=== PATIENT | female | born 1960 | race Caucasian/White ===

== ENCOUNTER 2020-02-26 13:52 | Emergency (ER) | payer OTHER, SELFPAY ==
[2020-02-26 14:00] VITALS: BP 136/91; PULSE 82; RESP 18; TEMP 36.6; O2SAT 99
--- NOTE | 2020-02-26 14:18 | ED.GENADULT ---
HPI - General Adult General Chief complaint: Extremity Injury, Upper Stated complaint: infected finger Time Seen by Provider: 02/26/20 14:17 Source: patient Mode of arrival: ambulatory Limitations: no limitations History of Present Illness HPI narrative: 59-year-old female patient presents to the [facility] with complaints of a concern infection to the right ring finger. Patient states that pain to the finger with swelling and redness started on Sunday. Patient states she did call her primary doctor on Sunday and send him a picture and he sent her and a prescription for clindamycin however she states that she thinks it might be getting worse. Patient states she has had infections to the fingers before. Denies any injury to the finger that she can remember. Denies being a diabetic. Denies any numbness or tingling. Related Data Allergies Allergy/AdvReac Type Severity Reaction Status Date / Time Cephalosporins Allergy Mild HIVES Verified 02/26/20 14:03 cefdinir Allergy Unknown Hives Verified 02/26/20 14:03 ciprofloxacin Allergy Unknown Rash Verified 02/26/20 14:03 codeine Allergy Unknown Hives Verified 02/26/20 14:03 doxycycline Allergy Unknown Hives Verified 02/26/20 14:03 duloxetine Allergy Unknown Hives Verified 02/26/20 14:03 gabapentin Allergy Unknown Hives Verified 02/26/20 14:03 morphine Allergy Unknown Hives Verified 02/26/20 14:03 nortriptyline Allergy Unknown Hives Verified 02/26/20 14:03 Penicillins Allergy Unknown Hives Verified 02/26/20 14:03 DULOXETINE HCL Allergy Unknown THROAT Uncoded 02/07/17 20:15 SWELLING. Review of Systems Review of Systems: Narrative: CONSTITUTIONAL: Denies fever, chills, or sweats. EYES: Denies visual changes, redness, or discharge. ENT: Denies rhinorrhea, congestion, sore throat, or otalgia. CARDIOVASCULAR: Denies chest pain, palpitations, or edema. RESPIRATORY: Denies cough or dyspnea. GASTROINTESTINAL: Denies abdominal pain, nausea, vomiting, or diarrhea. GENITOURINARY: Denies dysuria or hematuria. SKIN: Denies rash or itching. Patient's distal right finger has surrounding erythema to the nailbed with what appears to be some green pus to the medial side of the nail. Slightly warm to the touch no active discharge at this time. MUSCULOSKELETAL: Denies back pain, joint pain, or myalgia. NEUROLOGIC: Denies headache, numbness, or weakness. PSYCHIATRIC: Denies anxiety or depression. 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 Family History Family History Father Hypertension Family history of diabetes mellitus in first degree relative Diabetes mellitus Sibling Hypertension Mother Family history of diabetes mellitus in first degree relative Diabetes mellitus Hypertension Grandparent Family history of lung cancer Other Colon polyp Family history of arthritis Family history of malignant neoplasm of bone Social History Social History Smoking status: Former smoker Second hand tobacco smoke exposure: No Smoking end date: 09/17/03 Alcohol intake: current Comments At the time of my signature I agree with nursing past medical history, surgical, social, and family history. There is no relevant family history pertinent to the presenting complaint. Exam Narrative: Exam Narrative: GENERAL: Well-appearing, well-nourished, and in no acute distress. HEAD: Normocephalic, atraumatic. EYES: PERRLA and EOMI. ENT: Nares clear, no rhinorrhea or epistaxis. Mucous membranes
[2020-02-26 15:56] VITALS: BP 87/57; PULSE 68; RESP 16; TEMP 36.6; O2SAT 97
[2020-02-26 16:28] VITALS: BP 136/93; PULSE 70; RESP 16; TEMP 36.8; O2SAT 100
== END 2020-02-26 16:29 | disposition home or self-care (01) ==
PROVIDERS: Emergency Provider Nurse Practitioner Family; PCP Internal Medicine
DX: L03.011 Cellulitis of right finger (principal); I10 Essential (primary) hypertension; F32.9 Major depressive disorder, single episode, unspecified; K21.9 Gastro-esophageal reflux disease without esophagitis; E78.5 Hyperlipidemia, unspecified; Z87.891 Personal history of nicotine dependence; R03.0 Elevated blood-pressure reading, without diagnosis of hypertension
CPT/HCPCS: 26010; 99283

== ENCOUNTER 2020-09-22 09:31 | Outpatient (CLI) | payer OTHER, SELFPAY ==
--- NOTE | ~2020-09-22 | MM_ITS ---
EXAMINATION: MM screening marco BI w coni HISTORY: Screening mammogram TECHNIQUE: Craniocaudal and mediolateral oblique 3-D tomosynthesis images were obtained and synthetic 2-D images were generated. CAD analysis was submitted and interpreted. COMPARISON: 05/10/2018 bilateral diagnostic digital mammogram 05/10/2018 limited right breast ultrasound 08/03/2017 right ultrasound-guided breast biopsy and post biopsy mammogram 07/06/2017 diagnostic right digital mammogram and limited right breast ultrasound 06/21/2017 bilateral digital screening mammogram BREAST PARENCHYMAL COMPOSITION: There are scattered areas of fibroglandular density. FINDINGS: There are 2 biopsy markers on the right; history of prior benign right breast biopsies. The re is no evidence of suspicious mass, calcification, or architectural distortion to suggest malignanc y in either breast. There has been no suspicious interval change. IMPRESSION: 1. No mammographic evidence of malignancy. 2. Recommend routine screening mammography in one year. BI-RADS Category 1: Negative Reviewed, dictated and finalized at location B. 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
== END 2020-09-22 09:32 | disposition home or self-care (01) ==
LOC: ANHIMG 09:32
PROVIDERS: PCP Internal Medicine; Visit Provider Internal Medicine
DX: Z12.31 Encounter for screening mammogram for malignant neoplasm of breast (principal)
CPT/HCPCS: 77063; 77067

== ENCOUNTER → 2021-01-10 10:29 | Outpatient (CLI) | payer OTHER, SELFPAY ==
--- NOTE | ~2021-01-10 | DEXA_ITS ---
Bone Density Report Name: Rosalinda Ambrose Age: 60 Sex: Female Ethnicity: White Date of : 1960 Indication: postmenopausal; screening for osteoporosis; parental hip fracture; height loss; prior fracture; Referring Provider: CAESAR REYEZ Study: Bone densitometry was performed. Exam Date: January 10, 2021 Accession number: [id number] Bone Density: Region BMD T-score Z-score Classification AP Spine (L1-L4) 1.147 0.9 2.4 Normal Femoral Neck (Left) 0.882 0.3 1.6 Normal Total Hip (Left) 1.046 0.9 1.8 Normal Femoral Neck (Right) 0.932 0.7 2.0 Normal Total Hip (Right) 0.981 0.3 1.3 Normal Total Hip Mean 1.014 0.6 1.6 Normal World Health Organization criteria for BMD impression classify patients as: Normal (T-score at or above -1.0), Osteopenia (T-score between -1.0 and -2.5), or Osteoporosis (T-score at or below -2.5). 10-year Fracture Risk: FRAX not reported because: All T-scores for Spine Total, Hip Total, Femoral Neck at or above -1.0 Previous Exams: Region Exam Age BMD T-score BMD Change BMD Change Date g/cm2 vs Baseline vs Previous AP Spine(L1-L4) 01/10/2021 60 1.147 0.9 0.020 -0.107 12/04/2012 52 1.253 1.9 0.126* 0.126* 09/15/2009 49 1.127 0.7 Total Hip(Left) 01/10/2021 60 1.046 0.9 0.072 -0.004 12/04/2012 52 1.050 0.9 0.076* 0.076* 09/15/2009 49 0.975 0.3 Total Hip(Right) 01/10/2021 60 0.981 0.3 0.022 -0.019 12/04/2012 52 1.000 0.5 0.041* 0.041* 09/15/2009 49 0.960 0.1 *Denotes significance at 95% confidence level, LSC for AP Spine = 0.022 g/cm2, LSC for Total Hip = 0.027 g/cm2 Clinical Information Provided by Patient: Has had a low trauma fracture Parent has had a hip fracture Patient maximum height was 65 Menopause Age: 47 No regular weight bearing exercise Drinks caffeinated beverages Onset of menses at age 10 Number of children 2 Impression: The patient has normal bone mass. The patient has risk factors, including: parental hip fracture, previous fracture. No significant bone loss was observed. Discussion: BONE DENSITY IS ABOVE THE MINIMUM DESIRABLE LEVEL AT ALL SKELETAL SITES TESTED. This patient?s bone mineral density is above the minimum desirable level (T-score -1.0 or better) at all sites measured. The patient should follow a healthful lifestyle (good nutrition
== END ==
PROVIDERS: PCP Internal Medicine; Visit Provider Obstetrics & Gynecology Gynecology
DX: Z78.0 Asymptomatic menopausal state (principal)
CPT/HCPCS: 77080

== ENCOUNTER 2021-04-04 05:33 | Emergency (ER) | payer OTHER, SELFPAY ==
--- NOTE | ~2021-04-04 | XR_ITS ---
EXAMINATION: XR chest 1V portable DATE: 04/04/2021 06:57 INDICATION: Shortness of breath TECHNIQUE: frontal view of the chest was obtained. COMPARISON: Chest radiograph dated 08/21/2019 FINDINGS: Linear discoid atelectasis at the right lower lung zone. No other airspace opacities, pulmonary edema , pleural effusion or pneumothorax. The cardiomediastinal silhouette is normal. Mild thoracic spondyl osis. IMPRESSION: 1. Mild linear discoid atelectasis in the right lower lung zone. Reviewed, dictated and finalized at location A.
[2021-04-04 05:39] VITALS: BP 122/76; PULSE 103; RESP 20; TEMP 36.4; O2SAT 98
--- NOTE | 2021-04-04 05:46 | ECG_ITS ---
Measurements Intervals [place] Rate: 87 P: 21 [place]: 152 QRS: 9 QRSD: 92 T: 31 QT: 394 QTc: 475 Interpretive Statements SINUS RHYTHM INCOMPLETE RIGHT BUNDLE BRANCH BLOCK BORDERLINE T WAVE ABNORMALITY- ANT/INF LEADS BASELINE WANDER- I, II, AVR, AVL, AVF BORDERLINE ECG Electronically Signed On 04-04-2021 6:21:09 CDT by Juan Carlos German D.O.
[2021-04-04 06:07] LABS: Basophils Absolute Auto 0.1 K/mm3 (0.0-0.1); Basophils Percent Auto 0.6 % (0.2-1.2); Eosinophils Absolute Auto 0.2 K/mm3 (0-0.3); Eosinophils Percent Auto 2.2 % (0-4.4); Hematocrit 36.1 % (37.0-47.0); Hemoglobin 12.1 g/dL (12.0-15.0); Immature Granulocyte Absolute 0.03 K/mm3 (0.00-0.031); Immature Granulocyte Percent A 0.4 % (0-0.5); Lymphocytes Absolute Auto 2.06 K/mm3 (0.9-3.2); Lymphocytes Percent Auto 24.9 % (18.3-44.2); Mean Corpuscular HGB Conc 33.5 g/dl (32-36); Mean Corpuscular Hemoglobin 29.6 pg (26-34); Mean Corpuscular Volume 88.3 fl (80-100); Mean Platelet Volume 9.3 fl (7.4-10.4); Monocytes Absolute Auto 0.8 K/mm3 (0.1-0.6); Monocytes Percent Auto 9.3 % (2.6-8.5); Neutrophils Absolute Auto 5.2 K/mm3 (1.3-6.7); Neutrophils Percent Auto 62.6 % (45.5-73.1); Platelet Count Result 318 k/mm3 (150-375); Red Blood Count 4.09 M/mm3 (4.2-5.4); Red Cell Distribution Width 12.6 % (11.5-14.5); White Blood Count 8.3 K/mm3 (4.5-10.0)
--- NOTE | 2021-04-04 06:14 | ED.GENADULT ---
HPI - General Adult General Chief complaint: Upper Respiratory Infection Stated complaint: cough x2 weeks, fatigued Time Seen by Provider: 04/04/21 06:08 History of Present Illness HPI narrative: Patient is a 60-year-old female presents the emergency department with chief complaint of cough. The patient reports that she has been having a cough for the last 2 weeks states she is seen her primary care physician has been tested for COVID-19 and that was negative. The patient reports that she has been vaccinated for COVID-19 the patient is concerned that she may be developing pneumonia patient states that it is worsened with cough and reports that she felt very weak today after she been coughing. Patient states she had a little bit of a low-grade temperature 99 but is not run high fevers with this. The patient denies productive cough. Related Data Allergies Allergy/AdvReac Type Severity Reaction Status Date / Time Cephalosporins Allergy Mild HIVES Verified 04/04/21 06:05 cefdinir Allergy Unknown Hives Verified 04/04/21 06:05 ciprofloxacin Allergy Unknown Rash Verified 04/04/21 06:05 codeine Allergy Unknown Hives Verified 04/04/21 06:05 doxycycline Allergy Unknown Hives Verified 04/04/21 06:05 duloxetine Allergy Unknown Hives Verified 04/04/21 06:05 gabapentin Allergy Unknown Hives Verified 04/04/21 06:05 morphine Allergy Unknown Hives Verified 04/04/21 06:05 nortriptyline Allergy Unknown Hives Verified 04/04/21 06:05 Penicillins Allergy Unknown Hives Verified 04/04/21 06:05 DULOXETINE HCL Allergy Unknown THROAT Uncoded 04/04/21 06:05 SWELLING. Review of Systems Review of Systems: Narrative: A 10 system review of systems was completed on the patient and is negative except for what is stated in the HPI. Nursing and ancillary documentation was reviewed. [facility] Past Medical History Medical History Abnormal finding of blood chemistry Benign essential hypertension BMI 36.0-36.9,adult BMI 37.0-37.9, adult Chronic cough Chronic sinus complaints Depression Dizziness Encounter for colorectal cancer screening Encounter for preventive health examination Encounter for routine adult health examination with abnormal findings Encounter for routine adult health examination without abnormal findings Encounter for screening mammogram for malignant neoplasm of breast Exposure to hepatitis C GERD (gastroesophageal reflux disease) Hyperlipidemia Insomnia 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 Vitamin D deficiency Family History Family History Father Hypertension Family history of diabetes mellitus in first degree relative Diabetes mellitus Sibling Hypertension Mother Family history of diabetes mellitus in first degree relative Diabetes mellitus Hypertension Grandparent Family history of lung cancer Other Colon polyp Family history of arthritis Family history of malignant neoplasm of bone Social History Social History Smoking status: Former smoker Second hand tobacco smoke exposure: No Smoking end date: 09/17/03 Alcohol intake: current Exam Narrative: Exam Narrative: GENERAL: Well-appearing, well-nourished, and in no acute distress. HEAD: Normocephalic, atraumatic. EYES: PERRLA and EOMI. ENT: Nares clear, no rhinorrhea or epistaxis. Mucous membranes moist. NECK: Supple. CHEST: Clear to auscultation. No respiratory distress. HEART: Regular rate and rhythm. No murmur heard. Normal peripheral pulses. ABDOMEN: Soft, nontender, nondistended, normal active bowel sounds. EXTREMITIES: Normal range of motion. No edema. SKIN: Warm, dry, no rash. NEURO: No focal deficits. Alert and oriented x3. PSYCH: Normal mood and affect. Course Vital Signs Vital signs: Vital Signs Temperature 36.4 C L 04/04/21 05:39 Pulse Rate 103 H 04/04/21 05:3
[2021-04-04 06:15] LABS: Anion Gap 9 mmol/L (8-16); Blood Urea Nitrogen 16 mg/dL (7-17); Carbon Dioxide 21 mmol/L (22-30); Chloride 106 mmol/L (98-107); Estimated CRCL calculation 54 ml/min; Estimated Glomerular Filt Rate 51; Glucose 110 mg/dL (65-110); Potassium 3.7 mmol/L (3.4-5.0); Sodium 136 mmol/L (137-145)
[2021-04-04 06:47] VITALS: BP 114/76; PULSE 82; RESP 18; O2SAT 95
[2021-04-04 07:17] VITALS: BP 108/73; PULSE 98; RESP 18; O2SAT 97
== END 2021-04-04 07:19 | disposition home or self-care (01) ==
PROVIDERS: Emergency Provider Emergency Medicine; PCP Internal Medicine
DX: J20.9 Acute bronchitis, unspecified (principal); E78.5 Hyperlipidemia, unspecified; I10 Essential (primary) hypertension; F32.9 Major depressive disorder, single episode, unspecified; Z87.891 Personal history of nicotine dependence
CPT/HCPCS: 36415; 71045; 80048; 85025; 93005; 99284

== ENCOUNTER 2021-04-12 11:49 | Outpatient (CLI) | payer OTHER, SELFPAY ==
--- NOTE | ~2021-04-12 | XR_ITS ---
EXAMINATION: XR chest 2V 04/12/2021 12:01 INDICATION: Acute upper respiratory infection PROCEDURE: 2 view chest COMPARISON: 04/04/2021 FINDINGS: The lungs are clear. The cardiomediastinal silhouette is within normal limits. There are no pleural effusions. There is no pneumothorax suspected. IMPRESSION: 1: NO ACUTE CARDIOPULMONARY DISEASE. Reviewed, dictated and finalized at location A.
== END 2021-04-12 11:50 | disposition home or self-care (01) ==
LOC: ANHIMG 11:50
PROVIDERS: PCP Internal Medicine; Visit Provider Internal Medicine
DX: J06.9 Acute upper respiratory infection, unspecified (principal); R05 Cough; R06.02 Shortness of breath
CPT/HCPCS: 71046

== ENCOUNTER 2021-07-19 11:15 | Emergency (ER) | payer OTHER, SELFPAY ==
--- NOTE | ~2021-07-19 | XR_ITS ---
EXAMINATION: XR hip LT 2V w AP pelvis, XR sacrum coccyx min 2V DATE: 07/19/2021 12:18 INDICATION: Proximal left hip pain post fall onto concrete TECHNIQUE: 1. Anteroposterior view of the pelvis and anteroposterior and frog-leg lateral views of the left hip were obtained. 2. AP, angled AP and lateral views of the sacrum and coccyx were obtained. COMPARISON: None. FINDINGS: Alignment is normal. Sacral arches appear intact. No fracture. Mild right and minimal left hip osteoa rthritis. Bilateral sacral iliac joints bases appear relatively preserved. Moderate bilateral lower l umbar facet osteoarthritis. Several phleboliths in the pelvis. IMPRESSION: 1. No acute osseous abnormality. Reviewed, dictated and finalized at location A. IMPRESSION: 1. No acute osseous abnormality.
[2021-07-19 11:33] VITALS: BP 144/81; PULSE 87; RESP 20; TEMP 36.7; O2SAT 100
[2021-07-19] MEDS: diazePAM (*CRX) 5 MG TABLET PO (11:57)
--- NOTE | 2021-07-19 12:04 | ED.BACK ---
HPI - Back Pain/Injury General Chief Complaint: Back Pain/Injury Stated Complaint: BACK PAIN X2D Time Seen by Provider: 07/19/21 11:37 Source: patient and RN notes reviewed Mode of arrival: ambulatory Limitations: no limitations History of Present Illness HPI Narrative: This is a 60 year old female who presents for evaluation of left posterior hip pain s/p fall. Patient states she accidentally slipped and fell onto her buttock 2 days ago. She hit her left knee at that time, but denies denies hitting head or LOC. She was able to get up and she had very little pain. She denies knee pain. Later that night she developed pain to her left buttock. Her pain has worsened today. Her pain is worse with sitting and standing straight. She is able to laying her back. She takes ibuprofen 600 mg twice a day regularly for chronic neck pain but she has increased to 3 times a day for this pain. She denies limb weakness, numbness or tingling. She last took ibuprofen at 1000 am. Related Data Allergies Allergy/AdvReac Type Severity Reaction Status Date / Time Cephalosporins Allergy Mild HIVES Verified 07/19/21 11:39 cefdinir Allergy Unknown Hives Verified 07/19/21 11:39 ciprofloxacin Allergy Unknown Rash Verified 07/19/21 11:39 codeine Allergy Unknown Hives Verified 07/19/21 11:39 doxycycline Allergy Unknown Hives Verified 07/19/21 11:39 duloxetine Allergy Unknown Hives, Verified 07/19/21 11:53 Throat Swelling gabapentin Allergy Unknown Hives Verified 07/19/21 11:39 morphine Allergy Unknown Hives Verified 07/19/21 11:39 nortriptyline Allergy Unknown Hives Verified 07/19/21 11:39 Penicillins Allergy Unknown Hives Verified 07/19/21 11:39 Review of Systems Review of Systems: All systems reviewed & are unremarkable except as noted in HPI and below PMFSH Past Medical History Medical History Abnormal finding of blood chemistry Benign essential hypertension BMI 36.0-36.9,adult BMI 37.0-37.9, adult Chronic cough Chronic sinus complaints Depression Dizziness Encounter for colorectal cancer screening Encounter for preventive health examination Encounter for routine adult health examination with abnormal findings Encounter for routine adult health examination without abnormal findings Encounter for screening mammogram for malignant neoplasm of breast Exposure to hepatitis C Follow up GERD (gastroesophageal reflux disease) Hyperlipidemia Insomnia 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 URI (upper respiratory infection) Vitamin D deficiency Family History Family History Father Hypertension Family history of diabetes mellitus in first degree relative Diabetes mellitus Sibling Hypertension Mother Family history of diabetes mellitus in first degree relative Diabetes mellitus Hypertension Grandparent Family history of lung cancer Other Colon polyp Family history of arthritis Family history of malignant neoplasm of bone Social History Social History Smoking status: Former smoker Second hand tobacco smoke exposure: No Smoking end date: 09/17/03 Alcohol intake: current Exam Const: General: no acute distress and alert Nutritional Appearance: obese Orientation/consciousness: patient oriented x3 Eyes: EOM: EOMs intact bilaterally Resp: Effort & Inspection: normal respiratory effort and no retractions Auscultation: clear to auscultation bilaterally Cardio: Rate: regular rate Rhythm: regular rhythm Heart sounds: no murmurs GI: GI Palp: Yes Soft to palpation, No Tenderness to palpation present (GI) and No Guarding due to palpation present (GI) Auscultation: normal bowel sounds : General: Yes no CVA tenderness Back/Spine/Pelvis: Cervical Spine: cervical ROM normal Thoracic/Lumbar Spine: thoracic and lumbar spine normal to inspection, No para
== END 2021-07-19 13:40 | disposition home or self-care (01) ==
PROVIDERS: Emergency Provider General Practice; PCP Internal Medicine
DX: M54.42 Lumbago with sciatica, left side (principal); I10 Essential (primary) hypertension; K21.9 Gastro-esophageal reflux disease without esophagitis; E78.5 Hyperlipidemia, unspecified
CPT/HCPCS: 72220; 73502; 99284; A9270

== ENCOUNTER 2021-07-23 19:58 | Inpatient (IN) | payer OTHER, SELFPAY ==
--- NOTE | ~2021-07-23 | XR_ITS ---
XR knee LT 3V DATE: 07/23/2021 20:16 INDICATION: Fall. Generalized knee pain, anterior bruising TECHNIQUE: 3 views including crosstable lateral COMPARISON: None FINDINGS: No fracture or dislocation or joint effusion. No radiopaque intra-articular loose body or c hondrocalcinosis. Joint spaces are relatively preserved. There is minimal osteoarthritis. IMPRESSION: No fracture or dislocation or joint effusion Minimal osteoarthritis Reviewed, dictated and finalized at location A.
--- NOTE | ~2021-07-23 | XR_ITS ---
EXAMINATION: XR surgery orthopedic EXAM DATE: 07/25/2021 13:50 INDICATION: ORIF. Left ankle fracture. TECHNIQUE: Fluoroscopy used during left ankle ORIF performed by Dr. Isaac Carrillo MD. Radiologis t was not present for the imaging or procedure. Total fluoroscopic time of 20 seconds. The DAP for this procedure was 0.02 mGym2. A total of 4 images sent to PACS from the exam. FINDINGS: Left ankle portable fluoroscopic images demonstrate a reduced left fibular fracture with l ateral plate and supporting screws. There is also an anchor along the medial tibial plafond, consiste nt with repair of distal tibiofibular syndesmosis. Some soft tissue swelling. Correlate with procedu re note. Suspicion of small posterior malleolar fracture on the lateral projection. IMPRESSION: Fluoroscopy used during left ankle open reduction internal fixation. Reviewed, dictated and finalized at location A. ARD PRUNER IMPRESSION: Fluoroscopy used during left ankle open reduction internal fixation .
--- NOTE | ~2021-07-23 | XR_ITS ---
XR lumbar spine 2-3V DATE: 07/24/2021 13:24 INDICATION: Low back pain. Can't lie on left side. TECHNIQUE: AP, lateral, coned lateral lumbosacral views COMPARISON: None FINDINGS: Lumbar vertebrae are normally aligned. No fracture or bone destruction is evident. The lumb ar pedicles are intact. Lumbar and lumbosacral interspaces are relatively well preserved. There is mi nimal degenerative spurring of the lumbar vertebrae. The sacroiliac joints are intact. IMPRESSION: Mild degenerative change Reviewed, dictated and finalized at location A. OUT MANAGER IMPRESSION: Mild degenerative change
--- NOTE | ~2021-07-23 | CT_ITS ---
EXAMINATION: CT ankle LT wo con DATE: 07/24/2021 09:10 INDICATION: Left ankle fracture TECHNIQUE: High resolution computed tomography (CT) of the left ankle was performed without intraveno us contrast. Additional sagittal and coronal reconstructions were performed. Automated exposure contr ol and iterative reconstruction technique were employed. The dose-length product was 540.29 mGy-cm. COMPARISON: None FINDINGS: Oblique fracture of the distal left fibular diaphysis with 4 mm posterior displacement, 4 degrees pos terior and medial angulation and 3 mm proximal migration. Coronally oriented fracture extending acros s the posterior malleolus and into the posterior aspect of the medial malleolus. There is mild commin ution along the articular surface at the posterior aspect of the tibial plafond with minimal depressi on of a couple bone fragment involving the articular surface and mild posterior displacement along th e posterior margin of the talar dome of 5 x 4 mm fragment involving the posterior rim of the tibial p katelyn. There is approximately 3 to 4 mm proximal depression of the largest fragment involving the la teral two thirds of the posterior malleolus. The fractures involve less than 10% of the articular jas face area of the tibial plafond. No other fractures identified. Negligible widening of the anterior t ibiotalar joint space. Remaining joint spaces are preserved. Prominent soft tissue swelling with subc utaneous edema about the lateral aspect of the ankle and distal lower leg. Fiberglas splinting about the ankle. IMPRESSION: 1. Mildly displaced and angulated oblique fracture of the distal left fibular diaphysis. 2. Comminuted intra-articular fracture of the distal tibia involving the posterior malleolus and post erior aspect of medial malleolus with minimal to mild depression of a small portion of the posterior articular surface of the tibial plafond and with detailed above. Reviewed, dictated and finalized at location A. UNITY NURSE IMPRESSION: 1. Mildly displaced and angulated oblique fracture of the distal left fibular d iaphysis. 2. Comminuted intra-articular fracture of the distal tibia involving the zigzag appliquer ior malleolus and posterior aspect of medial malleolus with minimal to mild dep ression of a small portion of the posterior articular surface of the tibial brandi fond and with detailed above.
--- NOTE | ~2021-07-23 | XR_ITS ---
EXAMINATION: XR ankle LT min 3V DATE: 07/23/2021 23:04 INDICATION: Left ankle fracture reduction. TECHNIQUE: Anteroposterior, oblique, mortise, and lateral views of the left ankle were obtained. COMPARISON: 07/23/2021 at 8:08 PM FINDINGS: Interval reduction and fiberglass splinting of a previous noted left distal fibular and posterior mal leolar fractures with improvement in alignment. There is some degree residual posterior medial angula tion of the fibular fracture. Minimal residual displacement of the posterior malleolar fracture which extends into the medial malleolus. Slight residual widening of the anterior aspect of the tibiotalar joint. No other fractures identified. Diffuse soft tissue swelling about the ankle. IMPRESSION: 1. Improvement to near anatomic alignment and splinting of the left tibial and fibular fractures. Reviewed, dictated and finalized at location A. LATORY PAINTER
--- NOTE | ~2021-07-23 | XR_ITS ---
XR hip LT 2V w AP pelvis DATE: 07/23/2021 21:05 INDICATION: Fall today. Left hip pain. TECHNIQUE: AP pelvis. AP and lateral views of left hip. COMPARISON: None FINDINGS: No pelvic fracture or bone destruction. The pubic symphysis and sacroiliac joints are intac t. No fracture or dislocation, avascular necrosis or bone destruction of the left hip. There is mild lef t hip osteoarthritis. IMPRESSION: No pelvic or left hip fracture Mild left hip osteoarthritis Reviewed, dictated and finalized at location A.
--- NOTE | ~2021-07-23 | XR_ITS ---
XR ankle LT min 3V DATE: 07/23/2021 20:16 INDICATION: Fall. Ankle deformity. TECHNIQUE: 3 views COMPARISON: None FINDINGS: There is a spiral fracture of the distal fibular shaft with approximately 1 cortical width lateral displacement and mild apex anterolateral angulation. Intra-articular posterior malleolar fractures of the distal tibia. There is posterior subluxation and widening of the tibiotalar joint. IMPRESSION: Fracture of distal fibular shaft Intra-articular posterior malleolar fracture Mild posterior subluxation at the tibiotalar joint Reviewed, dictated and finalized at location A.
[2021-07-23 19:59] VITALS: BP 135/98; PULSE 96; RESP 16; TEMP 36.3; O2SAT 98
--- NOTE | 2021-07-23 20:34 | ED.GENADULT ---
HPI - General Adult General Chief complaint: Extremity Injury, Lower Stated complaint: Unspecified Time Seen by Provider: 07/23/21 20:24 Source: RN notes reviewed History of Present Illness HPI narrative: Patient presents to emergency department from home via EMS for left ankle pain. Patient states she has been having a severe flare of her sciatica and has been minimally able to get up and get around over the past 5 days states she has been taking tramadol for pain with her last tramadol at 3:30 PM. Patient states that she is attempting to pull herself up today to get up when she twisted her left ankle a pop in her left ankle is been able to bear weight since that time. She denies falling to the ground or striking her head she denies any other injuries patient denies any numbness or tingling in the extremities Related Data Allergies Allergy/AdvReac Type Severity Reaction Status Date / Time Cephalosporins Allergy Mild HIVES Verified 07/23/21 20:04 cefdinir Allergy Unknown Hives Verified 07/23/21 20:04 ciprofloxacin Allergy Unknown Rash Verified 07/23/21 20:04 codeine Allergy Unknown Hives Verified 07/23/21 20:04 doxycycline Allergy Unknown Hives Verified 07/23/21 20:04 duloxetine Allergy Unknown Hives, Verified 07/23/21 20:04 Throat Swelling gabapentin Allergy Unknown Hives Verified 07/23/21 20:04 morphine Allergy Unknown Hives Verified 07/23/21 20:04 nortriptyline Allergy Unknown Hives Verified 07/23/21 20:04 Penicillins Allergy Unknown Hives Verified 07/23/21 20:04 Review of Systems Review of Systems: Gen.: Denies fevers or chills ENT: Denies congestion Respiratory: Denies shortness of breath or cough CV: Denies chest pain or palpitations GI: Denies abdominal pain nausea, emesis or diarrhea Musculoskeletal: See HPI Neuro: Denies numbness, tingling, weakness or focal weakness Skin: Denies rash Except as documented, all other systems reviewed and negative PMFSH Past Medical History Medical History Abnormal finding of blood chemistry Back pain Benign essential hypertension BMI 36.0-36.9,adult BMI 37.0-37.9, adult Chronic cough Chronic sinus complaints Depression Dizziness Encounter for colorectal cancer screening Encounter for preventive health examination Encounter for routine adult health examination with abnormal findings Encounter for routine adult health examination without abnormal findings Encounter for screening mammogram for malignant neoplasm of breast Exposure to hepatitis C Follow up GERD (gastroesophageal reflux disease) Hyperlipidemia Insomnia 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 URI (upper respiratory infection) Vitamin D deficiency Family History Family History Father Hypertension Family history of diabetes mellitus in first degree relative Diabetes mellitus Sibling Hypertension Mother Family history of diabetes mellitus in first degree relative Diabetes mellitus Hypertension Grandparent Family history of lung cancer Other Colon polyp Family history of arthritis Family history of malignant neoplasm of bone Social History Social History Smoking status: Former smoker Second hand tobacco smoke exposure: No Smoking end date: 09/17/03 Alcohol intake: current Exam Narrative: APPEARANCE: No acute distress, nontoxic, resting in bed EYES: EOMI HEENT: Normocephalic, atraumatic, OMM RESPIRATORY: No respiratory distress Clear to auscultation bilaterally with no rhonchi wheezing or rales. CARDIOVASCULAR: Regular rate and rhythm without murmurs rubs or gallops. ABDOMINAL: Soft, nontender, nondistended, no rebound or guarding MUSCULOSKELETAl: Moves all extremities. No clubbing, cyanosis or edema. Diffusely tender of the left ankle with swelling present mild tenderness of the proximal left fibula dorsalis pedis pulse 2+ neur
[2021-07-23 20:51] LABS: Basophils Percent Auto 0.4 % (0.2-1.2); Eosinophils Absolute Auto 0.1 K/mm3 (0-0.3); Eosinophils Percent Auto 0.8 % (0-4.4); Hematocrit 29.8 % (37.0-47.0); Hemoglobin 9.6 g/dL (12.0-15.0); Immature Granulocyte Absolute 0.02 K/mm3 (0.00-0.031); Immature Granulocyte Percent A 0.3 % (0-0.5); Lymphocytes Absolute Auto 1.58 K/mm3 (0.9-3.2); Lymphocytes Percent Auto 22.4 % (18.3-44.2); Mean Corpuscular HGB Conc 32.2 g/dl (32-36); Mean Corpuscular Hemoglobin 29.8 pg (26-34); Mean Corpuscular Volume 92.5 fl (80-100); Mean Platelet Volume 9.4 fl (7.4-10.4); Monocytes Absolute Auto 0.6 K/mm3 (0.1-0.6); Monocytes Percent Auto 9.1 % (2.6-8.5); Neutrophils Absolute Auto 4.7 K/mm3 (1.3-6.7); Platelet Count Result 213 k/mm3 (150-375); Red Blood Count 3.22 M/mm3 (4.2-5.4); Red Cell Distribution Width 12.9 % (11.5-14.5); White Blood Count 7.1 K/mm3 (4.5-10.0)
[2021-07-23 21:11] LABS: Alanine Aminotransferase 18 U/L (4-35); Alkaline Phosphatase 66 U/L (38-126); Anion Gap 10 mmol/L (8-16); Aspartate Amino Transferase 28 U/L (14-36); Bilirubin,Total 0.5 mg/dL (0.2-1.3); Blood Urea Nitrogen 23 mg/dL (7-17); Calcium 9.1 mg/dL (8.4-10.2); Carbon Dioxide 23 mmol/L (22-30); Chloride 106 mmol/L (98-107); Estimated CRCL calculation 65 ml/min; Estimated Glomerular Filt Rate > 60; Glucose 104 mg/dL (65-110); Potassium 3.9 mmol/L (3.4-5.0); Sodium 139 mmol/L (137-145)
[2021-07-23 21:14] LABS: Prothrombin Time 12.7 Seconds (11.1-14.7)
[2021-07-23 21:15] LABS: Partial Thromboplastin Time 24.4 SECONDS (22.3-36.8)
[2021-07-23] MEDS: traMADol HCL (*CRX) 50 MG TABLET PO (21:17)
[2021-07-24 00:31] VITALS: BP 141/78; PULSE 86; RESP 18; O2SAT 100
[2021-07-24 00:56] VITALS: BMI 37.3
--- NOTE | 2021-07-24 01:03 | PC.NURSE ---
Daylight Savings Time For Daylight Savings Time Ending in the Fall - Clocks are moved back. For Daylight Savings Time Beginning in the Spring - Clocks are moved ahead. For [facility], the time of change occurs at 0200 hrs. Time is taken from the hotel server. This entry on the patient's chart recognizes the change in time reflected during documentation. Example: 2 entries for vital signs may be charted for 0200 hrs.
--- NOTE | 2021-07-24 01:06 | ADMGEN ---
This patient, Rosalinda Ambrose, was admitted to 3 [facility] Surg Room 323-01. Patient/family oriented to hospital policies and general routines including ID bracelet, bed and alarms, visiting hours, pain management, procedures, bathroom and other care routines, personal items, smoking policy, room service/diet, and visiting hours. Information on how to activate the Rapid Response Team has been discussed. Patient/Family are encouraged to report perceived risks to care and to ask questions if they do not understand what they are told or what they should do.
[2021-07-24] MEDS: traMADol HCL (*CRX) 50 MG TABLET 100 MG PO ×4 (02:39→17:23)
[2021-07-24 05:40] VITALS: BP 133/88; PULSE 89; RESP 12; TEMP 36.3; O2SAT 99
--- NOTE | 2021-07-24 08:22 | PM.CNOR ---
Assessment and Plan Assessment and plan (1) Closed left ankle fracture: Qualifiers: Encounter type: initial encounter Qualified Code(s): S82.892A - Other fracture of left lower leg, initial encounter for closed fracture Code(s): S82.892A - Other fracture of left lower leg, initial encounter for closed fracture Status: Acute (2) Sciatica: Qualifiers: Laterality: left Qualified Code(s): M54.32 - Sciatica, left side Code(s): M54.30 - Sciatica, unspecified side Status: Acute Assessment and Plan: 61-year-old female with an acute left ankle fracture. CT scan will be ordered to better assess the distal tibia as well as the ankle syndesmosis. I did discuss with her the rationale for surgical stabilization. Plan to keep her NPO after midnight tonight and proceed tomorrow. Of note in her labs she has developed a significant anemia since May and this will certainly need to be looked into. Finally, x-rays of her lumbar spine will be ordered. I did see in image from bone densitometry done last spring which does show degenerative arthritis. Her symptoms with respect to the left leg are concerning for a disc herniation. Postoperatively we could always try a short course of oral steroids to help with her mobility after the anemia workup. Thank you for the consultation. History of Present Illness HPI Consult date: 07/24/21 Consult reason: fracture Chief complaint: Left distal fibula fracture, left intra-articular Narrative: 61-year-old female who fell yesterday suffering a left ankle fracture. She had been experiencing significant sciatic nerve discomfort left lower extremity since falling on her backside about a week ago. She had been using a walker to get around. She had tried to get up and she said her leg gave out causing her to fall. No other injuries with this occurrence. She is currently on pain medication and so the back and leg pain that she had been experiencing is much better. I did review previous notes. It is noted that she has multiple medication intolerances however she was seen by an facing machine operator and Dr. Garcia has in his notes that she is okay for penicillin and cephalosporins. [facility] Past Medical History Medical History (Updated 07/24/21 @ 08:29 by Isaac Carrillo MD) Abnormal finding of blood chemistry Back pain Benign essential hypertension BMI 36.0-36.9,adult BMI 37.0-37.9, adult Chronic cough Chronic sinus complaints Closed left ankle fracture Depression Dizziness Encounter for colorectal cancer screening Encounter for preventive health examination Encounter for routine adult health examination with abnormal findings Encounter for routine adult health examination without abnormal findings Encounter for screening mammogram for malignant neoplasm of breast Exposure to hepatitis C Follow up GERD (gastroesophageal reflux disease) History of colitis Hyperlipidemia Insomnia 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 URI (upper respiratory infection) Vitamin D deficiency Family History Family History Father Hypertension Family history of diabetes mellitus in first degree relative Diabetes mellitus Sibling Hypertension Mother Family history of diabetes mellitus in first degree relative Diabetes mellitus Hypertension Grandparent Family history of lung cancer Other Colon polyp Family history of arthritis Family history of malignant neoplasm of bone Social History Social History Smoking status: Former smoker Second hand tobacco smoke exposure: No Smoking end date: 09/17/03 Alcohol intake: never Substance use: never Spiritual care concerns: No Meds Home Medications and Allergies Home Medications Medication Instructions Recorded Confirmed Type baclofen 10 mg tablet See Rx Instructions .ROUTE 07/18/21 07/24/21 Rx .COMPLEX #270 tab
--- NOTE | 2021-07-24 13:04 | PM.IMHP ---
H&P: [facility] History of Present Illness Date/Time: 07/24/21 11:04. Chief complaint: Extremity Injury, Lower Stated complaint: Left ankle pain. HPI 61-year-old female with a past medical history including but not limited to obesity, GERD, dyslipidemia, vitamin-D deficiency who is currently admitted with an acute left ankle fracture. patient was evaluated by the orthopedic system and will undergo a surgical repair tomorrow. CT scan Revealed a mildly displaced and angulated oblique fracture of the distal left fibula diaphysis and a comminuted intra-articular fracture of the distal tibia involving the posterior malleolus and posterior aspect of the medial malleolus with minimal to mild depression of a small portion of the posterior articular surface of the tibial plateau. Plan to keep her NPO after midnight tonight and proceed tomorrow. on admission to the ED the patient was stable afebrile with the following vital signs temperature 97.4?, pulse rate 96, respiratory rate 16, blood pressure 135/98, pulse oximetry 98%. On today's lab the CBC reveals a WBC of 7.1, hemoglobin 9.6, hematocrit 29.8 and a platelet count of 213. This represented a 3 point drop from her baseline hemoglobin in March and in May. Her chemistry shows a sodium of 139, potassium 3.9, chloride 106, bicarbonate 23, BUN 23, creatinine 0.9, blood glucose 104. LFTs are normal with a total bilirubin of 0.5, AST 28, ALT 18, alkaline phosphatase 66. Total protein 7.2 and albumin is 4. Lipid profile reveals a triglyceride of 92, cholesterol 137, LDL 52. TSH 2.7, free T4 1.0. Vitamin-D total 38. Will send a routine urinalysis. Patient will be admitted inpatient for at least 2 midnights. Chief Complaint: Left ankle pain. Review of Systems Review of Systems: All systems reviewed & are unremarkable except as noted in HPI and below Constitutional: Constitutional: Reports no additional constitutional complaints Eyes: Eyes: Reports no additional eye complaints ENT: Reports system reviewed and no additional complaints, except as documented Cardiovascular: Cardiovascular: Reports no additional cardiovascular complaints Respiratory: Respiratory: Reports no additional respiratory complaints Gastrointestinal: Gastrointestinal: Reports no additional gastrointestinal complaints Genitourinary: Genitourinary: Reports no additional female genitourinary complaints Musculoskeletal: Musculoskeletal: Reports no additional musculoskeletal complaints Integumentary/Breasts: Skin/Breast: Reports system reviewed and no additional complaints, except as docu Neurologic: Reports system reviewed and no additional complaints, except as documented Psychiatric: Psychiatric: Reports no additional psychiatric complaints PMFSH Past Medical History Medical History Abnormal finding of blood chemistry Back pain Benign essential hypertension BMI 36.0-36.9,adult BMI 37.0-37.9, adult Chronic cough Chronic sinus complaints Closed left ankle fracture Depression Dizziness Encounter for colorectal cancer screening Encounter for preventive health examination Encounter for routine adult health examination with abnormal findings Encounter for routine adult health examination without abnormal findings Encounter for screening mammogram for malignant neoplasm of breast Exposure to hepatitis C Follow up GERD (gastroesophageal reflux disease) History of colitis Hyperlipidemia Insomnia On [facility] drug therapy URI (upper respiratory infection) Vitamin D deficiency Family History Family History Father Hypertension Family history of diabetes mellitus in first degree relative Diabetes mellitus Sibling Hypertension Mother Family history of diabetes mellitus in first degree relative Diabetes mellitus Hypertension Grandparent Family history of lung cancer Other Colon polyp Family h
[2021-07-24 16:18] VITALS: BP 124/89; PULSE 98; RESP 18; TEMP 37.2; O2SAT 98
[2021-07-24] MEDS: BACLOFEN 10 MG TABLET PO (17:27)
[2021-07-24] MEDS: ROSUVASTATIN 10 MG TABLET PO (17:27)
[2021-07-24] MEDS: LIDOCAINE 5% PATCH 1 PATCH TRANSDERM (17:41)
[2021-07-24 18:25] VITALS: BP 137/97; PULSE 105; RESP 14; TEMP 36.8; O2SAT 97
[2021-07-24 20:00] VITALS: PULSE 105; RESP 14; O2SAT 97
[2021-07-24] MEDS: PANTOPRAZOLE 40 MG TABLET PO (21:15)
[2021-07-24] MEDS: ZOLPIDEM TARTRATE (*CRX) 5 MG TABLET 10 MG PO (21:20)
[2021-07-25] VITALS (13 sets, daily range): BP systolic 107–145; BP diastolic 65–88; PULSE 86–106; RESP 10–18; TEMP 36.4–37.2; O2SAT 94–100
[2021-07-25 06:54] LABS: Basophils Percent Auto 0.4 % (0.2-1.2); Eosinophils Absolute Auto 0.1 K/mm3 (0-0.3); Hematocrit 40.2 % (37.0-47.0); Hemoglobin 13.4 g/dL (12.0-15.0); Immature Granulocyte Absolute 0.04 K/mm3 (0.00-0.031); Immature Granulocyte Percent A 0.4 % (0-0.5); Lymphocytes Absolute Auto 1.68 K/mm3 (0.9-3.2); Lymphocytes Percent Auto 18.9 % (18.3-44.2); Mean Corpuscular HGB Conc 33.3 g/dl (32-36); Mean Corpuscular Hemoglobin 29.3 pg (26-34); Mean Corpuscular Volume 87.8 fl (80-100); Mean Platelet Volume 9.5 fl (7.4-10.4); Monocytes Absolute Auto 0.8 K/mm3 (0.1-0.6); Monocytes Percent Auto 9.2 % (2.6-8.5); Neutrophils Absolute Auto 6.2 K/mm3 (1.3-6.7); Neutrophils Percent Auto 70.1 % (45.5-73.1); Platelet Count Result 317 k/mm3 (150-375); Red Blood Count 4.58 M/mm3 (4.2-5.4); Red Cell Distribution Width 13.1 % (11.5-14.5); White Blood Count 8.9 K/mm3 (4.5-10.0)
[2021-07-25 07:02] LABS: Anion Gap 11 mmol/L (8-16); Blood Urea Nitrogen 20 mg/dL (7-17); Carbon Dioxide 25 mmol/L (22-30); Chloride 99 mmol/L (98-107); Estimated CRCL calculation 66 ml/min; Estimated Glomerular Filt Rate > 60; Glucose 108 mg/dL (65-110); Potassium 3.6 mmol/L (3.4-5.0); Sodium 135 mmol/L (137-145)
--- NOTE | 2021-07-25 07:30 | PM.IMPN ---
Progress Note: A&P Assessment and Plan (1) Closed fracture of distal end of left tibia: Code(s): S82.302A - Unspecified fracture of lower end of left tibia, initial encounter for closed fracture Status: Acute Assessment and Plan: Patient is POD ORIF left distal fibula fracture with syndesmotic stabilization (2) Closed fracture of distal end of left fibula: Code(s): S82.832A - Other fracture of upper and lower end of left fibula, initial encounter for closed fracture Status: Acute Assessment and Plan: Management per Ortho. Pain management is adequate. (3) Low back pain: Code(s): M54.50 - Low back pain, unspecified Status: Acute Assessment and Plan: Lidocaine patch p.r.n.. (4) BMI 37.0-37.9, adult: Code(s): Z68.37 - Body mass index [BMI] 37.0-37.9, adult Status: Acute Assessment and Plan: Diet and exercise. (5) Benign essential hypertension: Code(s): I10 - Essential (primary) hypertension Status: Acute Assessment and Plan: Blood pressure controlled in the 107/80 - 127/80 range. Resume valsartan 160 mg p.o. daily tomorrow am. (6) Hyperlipidemia: Qualifiers: Hyperlipidemia type: mixed hyperlipidemia Qualified Code(s): E78.2 - Mixed hyperlipidemia Code(s): E78.5 - Hyperlipidemia, unspecified Status: Acute Assessment and Plan: Continue statin. (7) Insomnia: Qualifiers: Insomnia type: unspecified Qualified Code(s): G47.00 - Insomnia, unspecified Code(s): G47.00 - Insomnia, unspecified Status: Acute Assessment and Plan: The zolpidem p.r.n. at bedtime. Subjective Date/time seen: 07/25/21 16:30 S: Patient was examined at the bedside. She is POD 0 left ankle fracture surgery. She is feeling well and reports adequate pain control. Patient feels hungry. Review of Systems Review of Systems: All systems reviewed & are unremarkable except as noted in HPI and below Constitutional: Constitutional: Reports no additional constitutional complaints Eyes: Eyes: Reports no additional eye complaints ENT: Reports system reviewed and no additional complaints, except as documented Cardiovascular: Cardiovascular: Reports no additional cardiovascular complaints Respiratory: Respiratory: Reports no additional respiratory complaints Gastrointestinal: Gastrointestinal: Reports no additional gastrointestinal complaints Genitourinary: Genitourinary: Reports no additional female genitourinary complaints Musculoskeletal: Musculoskeletal: Reports no additional musculoskeletal complaints Integumentary/Breasts: Skin/Breast: Reports system reviewed and no additional complaints, except as docu Neurologic: Reports system reviewed and no additional complaints, except as documented Psychiatric: Psychiatric: Reports no additional psychiatric complaints Exam Const: General: comfortable and no acute distress HENMT: Mouth: Yes moist mucous membranes Eyes: General: appearance normal, both eyes and all related structures Sclera: sclerae normal Neck: Neck: supple and no JVD Thyroid: thyroid normal Carotids: no bruits Lymphatic: lymphadenopathy not noted Resp: Effort & Inspection: normal respiratory effort Auscultation: clear to auscultation bilaterally Cardio: Rate: regular rate Rhythm: regular rhythm Heart sounds: no gallops, no murmurs and no rubs GI: Inspection: non-distended Auscultation: normal bowel sounds : Other: Deferred. Urinary Catheter: Urinary Catheter: patent and draining Skin: General skin exam: no rashes or lesions noted and no erythema Wounds: no wounds Neuro: Cognition (Neuro): normal cognition Extrem: General: no pedal edema Right upper extremity: no edema Left upper extremity: no edema Right lower extremity: no edema Left lower extremity: no edema Psych: Mental Status: mental status grossly normal Other: Objective Data
--- NOTE | 2021-07-25 07:47 | WPDANESEPPF ---
Anes - Initial Pre Proc Eval Procedure: Operation Date: 07/25/21 14:30 Proposed Procedures p Open Reduction Internal Fixation Right Ankle - Isaac Carrillo MD Date/Time: 07/25/21 07:47 Surgeon: Chhaya Gilmore DO Pre Op Diagnosis: Left distal fibula fracture, left intra-articular Patient Data Age: 61 Gender: F Height: 1.63 m Weight: 98.5 kg Last Vital Signs Temp 36.4 C 07/25/21 05:53 Pulse 99 07/25/21 05:53 Resp 12 07/25/21 05:53 BP 118/80 07/25/21 05:53 Pulse Ox 97 07/25/21 05:53 Allergies Allergy/AdvReac Type Severity Reaction Status Date / Time Cephalosporins Allergy Mild HIVES Verified 07/23/21 20:04 cefdinir Allergy Unknown Hives Verified 07/23/21 20:04 ciprofloxacin Allergy Unknown Rash Verified 07/23/21 20:04 codeine Allergy Unknown Hives Verified 07/23/21 20:04 doxycycline Allergy Unknown Hives Verified 07/23/21 20:04 duloxetine Allergy Unknown Hives, Verified 07/23/21 20:04 Throat Swelling gabapentin Allergy Unknown Hives Verified 07/23/21 20:04 morphine Allergy Unknown Hives Verified 07/23/21 20:04 nortriptyline Allergy Unknown Hives Verified 07/23/21 20:04 Penicillins Allergy Unknown Hives Verified 07/23/21 20:04 Home Medications Medication Instructions Recorded Confirmed Type baclofen 10 mg tablet See Rx Instructions .ROUTE 07/18/21 07/24/21 Rx .COMPLEX #270 tablet ibuprofen 600 mg PO Q6H PRN #14 tablet 07/19/21 07/24/21 Rx albuterol sulfate 1 inh INHALATION PRN PRN 07/24/21 07/24/21 History bupropion HCl 150 mg PO DAILY 07/24/21 07/24/21 History citalopram 20 mg PO DAILY 07/24/21 07/24/21 History methylprednisolone [Medrol ([place])] 4 mg PO BID 07/24/21 07/24/21 History omeprazole 40 mg PO DAILY 07/24/21 07/24/21 History rosuvastatin 10 mg PO QPM 07/24/21 07/24/21 History tramadol 100 mg PO Q4-6H PRN 07/24/21 07/24/21 History valsartan 160 mg PO DAILY 07/24/21 07/24/21 History zolpidem 12.5 mg PO QPM 07/24/21 07/24/21 History Laboratory Tests 07/25/21 07/25/21 06:23 06:23 WBC 8.9 K/mm3 K/mm3 (4.5-10.0) RBC 4.58 M/mm3 M/mm3 (4.2-5.4) Hgb 13.4 g/dL D g/dL (12.0-15.0) Hct 40.2 % % (37.0-47.0) MCV 87.8 fl D fl (80-100) MCH 29.3 pg pg (26-34) MCHC 33.3 g/dl g/dl (32-36) RDW 13.1 % % (11.5-14.5) Plt Count 317 k/mm3 k/mm3 (150-375) MPV 9.5 fl fl (7.4-10.4) Immature Gran % (Auto) 0.4 % % (0-0.5) Neut % (Auto) 70.1 % % (45.5-73.1) Lymph % (Auto) 18.9 % % (18.3-44.2) Archuleta % (Auto) 9.2 % H % (2.6-8.5) Eos % (Auto) 1.0 % % (0-4.4) Baso % (Auto) 0.4 % % (0.2-1.2) Lymph # (Auto) 1.68 K/mm3 K/mm3 (0.9-3.2) Archuleta # (Auto) 0.8 K/mm3 H K/mm3 (0.1-0.6) Eos # (Auto) 0.1 K/mm3 K/mm3 (0-0.3) Baso # (Auto) 0.0 K/mm3 K/mm3 (0.0-0.1) Abs Immat Gran (auto) 0.04 K/mm3 H K/mm3 (0.00-0.031) Absolute Neuts (auto) 6.2 K/mm3 K/mm3 (1.3-6.7) Absolute Nucleated RBC 0.0 K/mm3 K/mm3 (0.0-0.012) Nucleated RBC % 0.0 % % (0.0-0.2) Sodium 135 mmol/L L mmol/L (137-145) Potassium 3.6 mmol/L mmol/L (3.4-5.0) Chloride 99 mmol/L mmol/L (98-107) Carbon Dioxide 25 mmol/L mmol/L (22-30) Anion Gap 11 mmol/L mmol/L (8-16) BUN 20 mg/dL H mg/dL (7-17) Creatinine 0.90 mg/dL mg/dL (0.7-1.0) Estim Creat Clear Calc 66 ml/min ml/min Estimated GFR > 60 (59 - ) Glucose 108 mg/dL mg/dL (65-110) Calcium 9.0 mg/dL mg/dL (8.4-10.2) ECG: Date of Service: 04/04/21 Procedure(s): CA 12 lead EKG Accession Number(s): [id number] cc: ~ Measurements Intervals [place] Rate: 87 P: 21 WA: 152 QRS: 9 QRSD: 92 T: 31 Q
[2021-07-25] MEDS: PANTOPRAZOLE 40 MG TABLET PO ×2 (08:36→20:09)
[2021-07-25] MEDS: CITALOPRAM HYDROBROMIDE 20 MG TABLET PO (08:36)
[2021-07-25] MEDS: buPROPion HCL XL (24 HR) 150 MG TABCR PO (08:36)
[2021-07-25] MEDS: LACTATED RINGERS 1,000 ML 30 ML IV CONT ×2 (11:31→14:03)
--- NOTE | 2021-07-25 11:59 | WPDANESPNB ---
Anes - Peripheral Nerve Block Date/Time: 07/25/21 11:59 I have discussed with the patient/family/POA the placement of a peripheral nerve block for post-operative pain management, including associated risks, benefits, complications, and side effects. Alternative methods of post-operative analgesia were detailed. Questions were solicited and answers provided to the satisfaction of the patient/family/POA. Time-Out: A pre-procedural Time-Out was completed immediately before starting the procedure and confirmed: Patient Identification, Site, Procedure, Patient Position and the Availability of Requisite Equipment. Clinical Indications: Acute post-operative pain management requested by the operative surgeon. Nerve Block Insertion Note Anes-nerve block: posterior fossa sciatic (20cc) left and adductor canal (10cc) left Patient position: supine Skin prep: chlorhexidine Needle: 22 gauge, stimulating, insulated echogenic needle. Needle length: 80 mm Technique: ultrasound (in plane) Injectate: bupivacaine 0.25% with epi 5 mcg/ml (30cc) Observations: tolerated well Complications: none Procedure start time:: 1150 Procedure end time:: 115
--- NOTE | 2021-07-25 12:12 | WPDHPUPDATE1 ---
History and Physical Update Update Date/Time: 07/25/21 12:12 History and Physical has been reviewed, including an updated exam of the patient. There are NO changes in the patient's condition. Risks, benefits, and alternatives have been discussed and questions answered. Patient agrees to proceed with procedure.
[2021-07-25] MEDS: ceFAZolin 2 GM/D5W 50 ML 2 GM/50 ML BAG IVPB ×2 (12:17→20:09)
--- NOTE | 2021-07-25 14:22 | W.PM.PROC2 ---
Procedure Note - Detailed Date of Procedure 07/25/21 Pre-op Diagnosis Left distal fibula fracture; left tibial plafond fracture; left distal tib-fib syndesmotic disruption Post-op Diagnosis same Procedure Performed ORIF left distal fibula fracture with syndesmotic stabilization Surgeon Isaac Carrillo MD Jetting Machine Operator Any Cummings Anesthesia general and regional Description of Procedure The patient was identified and proper site identified. In the preoperative holding area, Anesthesia team performed a left lower extremity block. She was then taken to the operating room and transferred to the OR table positioned supine taking care to pad her torso extremities. After general anesthetic induction and intubation, a nonsterile tourniquet was placed high in the left thigh. Left lower extremity is prepped and draped in usual sterile fashion. Extremity was exsanguinated tourniquet was inflated to 300 millimeters of mercury remaining up for approximately 66 minutes. Longitudinal incision was made over the distal fibular shaft. Subcutaneous tissue sharply dissected down to the deep fascia which had actually been torn by the Trauma exposing the fracture site. The fracture ends were exposed. Syndesmosis was inspected and noted to be completely disrupted anteriorly and the distal fibula was mobile and that articulation. A 2.7 millimeter lag screw was used to hold the fibular shaft fracture reduced and then an eight hole 1/3 tubular locking plate was applied stabilizing the fibular fracture. Syndesmosis was assessed and noted to be unstable so a tight-rope device was used to secure and stabilize the syndesmosis while aligning up the anterior aspect of this under direct visualization. Care was taken to not over tighten this. This was also done with fluoroscopic assistance. At the completion of the syndesmotic stabilization, the talus was anatomically position in the mortise and normal distal tib-fib relationship restored. The ankle was assessed on the AP, mortise and lateral views. The wound was then irrigated with sterile saline solution. The deeper layers of the subcutaneous tissue were reapproximated with 2-0 Vicryl suture. Skin was reapproximated with 2-0 Stratafix and jimmy. Sterile dressings applied. Tourniquet is released. A well-padded stirrup type ankle splint was applied with the ankle in a neutral position. She tolerated the procedure well. She was awakened, extubated and taken recovery in stable condition. There were no known intraoperative complications. Estimated blood loss was 15 milliliters. She received perioperative antibiotics. Estimated Blood Loss 15 Tourniquet Time 66 Urine Output 300 Drains No Packing No Pathology none sent Complications No immediate complications Condition stable Disposition PACU
[2021-07-25] MEDS: fentaNYL CITRATE INJ (*CRX) 100 MCG/2 ML VIAL 25 MCG IV PUSH ×4 (14:41→14:53)
[2021-07-25] MEDS: SODIUM CHLORIDE 0.9% IV 1,000 ML 125 ML IV CONT (17:11)
[2021-07-25] MEDS: DOCUSATE SODIUM 100 MG CAPSULE PO (17:12)
[2021-07-25] MEDS: BACLOFEN 10 MG TABLET PO (17:12)
[2021-07-25] MEDS: ROSUVASTATIN 10 MG TABLET PO (17:13)
[2021-07-25] MEDS: ASPIRIN 325 MG ENTERIC TABLET PO (20:09)
[2021-07-25] MEDS: ACETAMINOPHEN 500 MG TABLET 1000 MG PO (20:09)
[2021-07-25] MEDS: ZOLPIDEM TARTRATE (*CRX) 5 MG TABLET 10 MG PO (20:09)
[2021-07-26] VITALS: BP 107/62; PULSE 112; RESP 18; TEMP 36.1; O2SAT 96
[2021-07-26] MEDS: TAPENTADOL HCL (*CRX) 50 MG TABLET PO ×2 (02:36→17:24)
[2021-07-26] MEDS: ceFAZolin 2 GM/D5W 50 ML 2 GM/50 ML BAG IVPB ×2 (03:51→12:50)
[2021-07-26] MEDS: LIDOCAINE 5% PATCH 1 PATCH TRANSDERM (03:52)
[2021-07-26 04:00] VITALS: BP 108/69; PULSE 103; RESP 18; TEMP 36.8; O2SAT 97
[2021-07-26] MEDS: ACETAMINOPHEN 500 MG TABLET 1000 MG PO ×3 (05:30→20:38)
--- NOTE | 2021-07-26 07:23 | PM.PNORT ---
Progress Note: A&P Assessment and Plan (1) Closed fracture of distal end of left tibia: Qualifiers: Encounter type: subsequent encounter Fracture morphology: pilon Fracture alignment: nondisplaced Fracture healing: with routine healing Qualified Code(s): S82.875D - Nondisplaced pilon fracture of left tibia, subsequent encounter for closed fracture with routine healing Code(s): S82.302A - Unspecified fracture of lower end of left tibia, initial encounter for closed fracture Status: Acute (2) Fracture of left fibula, shaft: Qualifiers: Encounter type: subsequent encounter Fracture type: closed Fracture morphology: spiral Fracture alignment: nondisplaced Fracture healing: with routine healing Qualified Code(s): S82.445D - Nondisplaced spiral fracture of shaft of left fibula, subsequent encounter for closed fracture with routine healing Code(s): S82.402A - Unspecified fracture of shaft of left fibula, initial encounter for closed fracture Status: Acute (3) Syndesmotic disruption of left ankle: Qualifiers: Encounter type: subsequent encounter Qualified Code(s): S93.432D - Sprain of tibiofibular ligament of left ankle, subsequent encounter Code(s): S93.432A - Sprain of tibiofibular ligament of left ankle, initial encounter Status: Acute (4) Sciatica: Qualifiers: Laterality: left Qualified Code(s): M54.32 - Sciatica, left side Code(s): M54.30 - Sciatica, unspecified side Status: Acute Assessment and Plan: 61-year-old female who is status post ORIF left distal fibular shaft fracture we along with open syndesmotic stabilization. Her therapy will be initiated. She may be a good candidate for rehab particularly with the sciatic nerve irritation. Will have therapy address the sciatic nerve issue as well as much as they can. Will reorder the Medrol Dosepak. Following. Subjective Subjective Date/Time Seen: 07/26/21 07:23 Post Op day: 1 Principal diagnosis: Status post ORIF left fibular shaft fracture with syndesmotic stabilization Interval history: 61-year-old female postop day one from left lower leg surgery. The block has worn off and she started to experience some soreness in her leg on the left side. No numbness or sensation of tightness. She also notes that her sciatic nerve irritation is starting to become a bit problematic again. She did note today that she had a short course of oral steroids after the initial injury which did not seem to give her significant lasting relief. Exam Const: General: cooperative, comfortable and no acute distress Nutritional Appearance: obese (BMI 37.3) GI: Other: Abdomen nondistended Extrem: Other: Dressing intact left lower extremity. Lower leg compartments supple. Good capillary refill to the toes. Grossly neurovascular status intact to the toes. Mildly positive sciatic nerve stretch left leg. Objective Data Vital Signs Vital Signs: Vital Signs - 24 hr 07/25/21 11:08 07/25/21 14:03 07/25/21 14:15 Temperature 98.2 F 97.9 F Pulse Rate 103 H 86 98 Respiratory Rate 16 10 L 10 L Blood Pressure 124/77 107/71 116/84 Pulse Oximetry 97 100 100 07/25/21 14:30 07/25/21 14:45 07/25/21 15:00 Temperature Pulse Rate 98 96 95 Respiratory Rate 12 12 12 Blood Pressure 136/88 129/83 145/85 H Pulse Oximetry 100 100 94 07/25/21 15:15 07/25/21 15:30 07/25/21 15:33 Temperature 98.0 F Pulse Rate 99 102 H 93 Respiratory Rate 12 12 14 Blood Pressure 130/85 123/78 127/80 Pulse Oximetry 94 94 95 07/25/21 16:18 07/25/21 17:53 07/25/21 20:00 Temperature 98.9 F 98.8 F 98.2 F Pulse Rate 94 93 106 H Respiratory Rate 16 14 18 Blood Pressure 107/80 111/75 122/65 Pulse Oximetry 94 95 96 07/26/21 00:00 07/26/21 04:00 Temperature 96.9 F L 98.3 F Pulse Rate 112 H 103 H Respiratory Rate 18 18 Blood Pressure 107/62 108/69 Pulse Oximetry 96 97 Intake/Output Intake/Output:
[2021-07-26 08:00] VITALS: BP 110/66; PULSE 94; RESP 17; TEMP 36.6; O2SAT 94
--- NOTE | 2021-07-26 09:00 | WPDANESPN ---
Anes - Prog Note Post-Op Date/Time: 07/26/21 09:00 Cardiovascular status: normal Respiratory status: normal Airway patency: baseline Mental status: baseline Post-Op hydration status: normal Vital Signs: Last Vital Signs Temp 36.6 C 07/26/21 08:00 Pulse 94 07/26/21 08:00 Resp 17 07/26/21 08:00 BP 110/66 07/26/21 08:00 Pulse Ox 94 07/26/21 08:00 Pain Score (VAS): 0 I/O: Intake & Output 07/25/21 07/26/21 07/26/21 23:59 07:59 15:59 Intake Total 290 600 180 Output Total 300 Balance -10 600 180 Laboratory Tests 07/25/21 06:23 07/25/21 06:23 Post-procedural complaints: none Patient Feedback: Patient satisfied with anesthetic care.
[2021-07-26 09:18] VITALS: BP 112/70; PULSE 93; RESP 17; TEMP 36.6; O2SAT 95
[2021-07-26] MEDS: CITALOPRAM HYDROBROMIDE 20 MG TABLET PO (09:54)
[2021-07-26] MEDS: BACLOFEN 10 MG TABLET PO ×3 (09:54→17:17)
[2021-07-26] MEDS: VALSARTAN 160 MG TABLET PO (09:54)
[2021-07-26] MEDS: buPROPion HCL XL (24 HR) 150 MG TABCR PO (09:54)
[2021-07-26] MEDS: ASPIRIN 325 MG ENTERIC TABLET PO ×2 (09:54→20:37)
[2021-07-26] MEDS: PANTOPRAZOLE 40 MG TABLET PO ×2 (09:54→20:38)
[2021-07-26] MEDS: DOCUSATE SODIUM 100 MG CAPSULE PO ×2 (09:54→17:17)
[2021-07-26 11:26] VITALS: O2SAT 95
[2021-07-26] MEDS: methylPREDNISolone (MEDROL) DOSEPACK 4 MG TABLETS PO ×4 (12:20→20:37)
[2021-07-26 13:18] VITALS: BP 113/67; PULSE 96; RESP 18; TEMP 36.4; O2SAT 99
--- NOTE | 2021-07-26 15:46 | PM.IMPN ---
Progress Note: A&P Assessment and Plan (1) Closed fracture of distal end of left tibia: Qualifiers: Encounter type: subsequent encounter Fracture alignment: nondisplaced Fracture healing: with routine healing Fracture morphology: pilon Qualified Code(s): S82.875D - Nondisplaced pilon fracture of left tibia, subsequent encounter for closed fracture with routine healing Code(s): S82.302A - Unspecified fracture of lower end of left tibia, initial encounter for closed fracture Status: Acute Assessment and Plan: Patient is POD 1 ORIF left distal fibula fracture with syndesmotic stabilization. Continue management per Ortho (2) Closed fracture of distal end of left fibula: Code(s): S82.832A - Other fracture of upper and lower end of left fibula, initial encounter for closed fracture Status: Deleted Assessment and Plan: Management per Ortho. Pain management is adequate. (3) Low back pain: Code(s): M54.50 - Low back pain, unspecified Status: Acute Assessment and Plan: Lidocaine patch p.r.n.. (4) BMI 37.0-37.9, adult: Code(s): Z68.37 - Body mass index [BMI] 37.0-37.9, adult Status: Acute Assessment and Plan: Diet and exercise. (5) Benign essential hypertension: Code(s): I10 - Essential (primary) hypertension Status: Acute Assessment and Plan: Blood pressure controlled in the 107/62 - 112/70 range. Hold valsartan if blood pressure less than 110/70 tomorrow. (6) Hyperlipidemia: Qualifiers: Hyperlipidemia type: mixed hyperlipidemia Qualified Code(s): E78.2 - Mixed hyperlipidemia Code(s): E78.5 - Hyperlipidemia, unspecified Status: Acute Assessment and Plan: Continue statin. (7) Insomnia: Qualifiers: Insomnia type: unspecified Qualified Code(s): G47.00 - Insomnia, unspecified Code(s): G47.00 - Insomnia, unspecified Status: Acute Assessment and Plan: The zolpidem p.r.n. at bedtime. Subjective Date/time seen: 07/26/21 15:46 S: Patient was examined at the bedside. She denies any complaints. She is postop day 1 left lower leg injury. The blood counts started to wear off and she reports mild pain left lower extremity. She reports adequate pain control. Breakfast was tolerated well. She has been working with physical therapy and is agreeable with her current management. Review of Systems Review of Systems: All systems reviewed & are unremarkable except as noted in HPI and below Constitutional: Constitutional: Reports no additional constitutional complaints Eyes: Eyes: Reports no additional eye complaints ENT: Reports system reviewed and no additional complaints, except as documented Cardiovascular: Cardiovascular: Reports no additional cardiovascular complaints Respiratory: Respiratory: Reports no additional respiratory complaints Gastrointestinal: Gastrointestinal: Reports no additional gastrointestinal complaints Genitourinary: Genitourinary: Reports no additional female genitourinary complaints Musculoskeletal: Musculoskeletal: Reports no additional musculoskeletal complaints Integumentary/Breasts: Skin/Breast: Reports system reviewed and no additional complaints, except as docu Neurologic: Reports system reviewed and no additional complaints, except as documented Psychiatric: Psychiatric: Reports no additional psychiatric complaints Exam Const: General: comfortable and no acute distress HENMT: Mouth: Yes moist mucous membranes Eyes: General: appearance normal, both eyes and all related structures Sclera: sclerae normal Neck: Neck: supple and no JVD Thyroid: thyroid normal Carotids: no bruits Lymphatic: lymphadenopathy not noted Resp: Effort & Inspection: normal respiratory effort Auscultation: clear to auscultation bilaterally Cardio: Rate: regular rate Rhythm: regular rhythm Heart sounds: no gallops, no murmur
[2021-07-26] MEDS: ROSUVASTATIN 10 MG TABLET PO (17:19)
[2021-07-26] MEDS: ZOLPIDEM TARTRATE (*CRX) 5 MG TABLET 10 MG PO (20:39)
[2021-07-27 04:10] VITALS: BP 114/66; PULSE 73; RESP 18; TEMP 36.3; O2SAT 95
[2021-07-27] MEDS: ACETAMINOPHEN 500 MG TABLET 1000 MG PO ×3 (06:20→21:10)
[2021-07-27] MEDS: methylPREDNISolone (MEDROL) DOSEPACK 4 MG TABLETS PO ×4 (06:21→21:09)
[2021-07-27] MEDS: LIDOCAINE 5% PATCH 1 PATCH TRANSDERM (08:49)
[2021-07-27] MEDS: ASPIRIN 325 MG ENTERIC TABLET PO ×2 (08:50→21:09)
[2021-07-27] MEDS: PANTOPRAZOLE 40 MG TABLET PO ×2 (08:50→21:09)
[2021-07-27] MEDS: BACLOFEN 10 MG TABLET PO ×3 (08:50→16:40)
[2021-07-27] MEDS: CITALOPRAM HYDROBROMIDE 20 MG TABLET PO (08:50)
[2021-07-27] MEDS: VALSARTAN 160 MG TABLET PO (08:50)
[2021-07-27] MEDS: buPROPion HCL XL (24 HR) 150 MG TABCR PO (08:50)
[2021-07-27] MEDS: DOCUSATE SODIUM 100 MG CAPSULE PO ×2 (08:50→16:40)
[2021-07-27] MEDS: MAGNESIUM HYDROXIDE SUSP 30 ML UDC PO (08:51)
--- NOTE | 2021-07-27 10:52 | PM.IMPN ---
Progress Note: A&P Assessment and Plan (1) Closed fracture of distal end of left tibia: Qualifiers: Encounter type: subsequent encounter Fracture alignment: nondisplaced Fracture healing: with routine healing Fracture morphology: pilon Qualified Code(s): S82.875D - Nondisplaced pilon fracture of left tibia, subsequent encounter for closed fracture with routine healing Code(s): S82.302A - Unspecified fracture of lower end of left tibia, initial encounter for closed fracture Status: Acute Assessment and Plan: Patient is POD 2 ORIF left distal fibula fracture with syndesmotic stabilization. Continue management per Ortho (2) Closed fracture of distal end of left fibula: Code(s): S82.832A - Other fracture of upper and lower end of left fibula, initial encounter for closed fracture Status: Deleted Assessment and Plan: Management per Ortho. Pain management is adequate. Encouraged daily physical therapy. (3) Low back pain: Code(s): M54.50 - Low back pain, unspecified Status: Acute Assessment and Plan: Resolved. Continue lidocaine patch p.r.n.. (4) BMI 37.0-37.9, adult: Code(s): Z68.37 - Body mass index [BMI] 37.0-37.9, adult Status: Acute Assessment and Plan: Diet and exercise. (5) Benign essential hypertension: Code(s): I10 - Essential (primary) hypertension Status: Acute Assessment and Plan: Blood pressure controlled at 114/66 today. Hold valsartan if blood pressure less than 110/70 tomorrow. (6) Hyperlipidemia: Qualifiers: Hyperlipidemia type: mixed hyperlipidemia Qualified Code(s): E78.2 - Mixed hyperlipidemia Code(s): E78.5 - Hyperlipidemia, unspecified Status: Acute Assessment and Plan: Continue statin. (7) Insomnia: Qualifiers: Insomnia type: unspecified Qualified Code(s): G47.00 - Insomnia, unspecified Code(s): G47.00 - Insomnia, unspecified Status: Acute Assessment and Plan: The zolpidem p.r.n. at bedtime. Subjective Date/time seen: 07/27/21 10:52 S; patient is examined at the bedside. She denied any complaints at the time of my examination. She has been working with physical therapy. She reported adequate pain control at the time of my examination. Review of Systems Review of Systems: All systems reviewed & are unremarkable except as noted in HPI and below Constitutional: Constitutional: Reports no additional constitutional complaints Eyes: Eyes: Reports no additional eye complaints ENT: Reports system reviewed and no additional complaints, except as documented Cardiovascular: Cardiovascular: Reports no additional cardiovascular complaints Respiratory: Respiratory: Reports no additional respiratory complaints Gastrointestinal: Gastrointestinal: Reports no additional gastrointestinal complaints Genitourinary: Genitourinary: Reports no additional female genitourinary complaints Musculoskeletal: Musculoskeletal: Reports no additional musculoskeletal complaints Integumentary/Breasts: Skin/Breast: Reports system reviewed and no additional complaints, except as docu Neurologic: Reports system reviewed and no additional complaints, except as documented Psychiatric: Psychiatric: Reports no additional psychiatric complaints Exam Const: General: comfortable and no acute distress HENMT: Mouth: Yes moist mucous membranes Eyes: General: appearance normal, both eyes and all related structures Sclera: sclerae normal Neck: Neck: supple and no JVD Thyroid: thyroid normal Carotids: no bruits Lymphatic: lymphadenopathy not noted Resp: Effort & Inspection: normal respiratory effort Auscultation: clear to auscultation bilaterally Cardio: Rate: regular rate Rhythm: regular rhythm Heart sounds: no gallops, no murmurs and no rubs GI: Inspection: non-distended Auscultation: normal bowel sounds : Other: Deferred. U
--- NOTE | 2021-07-27 10:56 | PM.IMPN ---
Subjective Date/time seen: 07/27/21 10:56 Objective Data Vital Signs Vital Signs: Vital Signs - 24 hr 07/26/21 11:26 07/26/21 13:18 07/27/21 04:10 Temperature 97.5 F L 97.3 F L Pulse Rate 96 73 Respiratory Rate 18 18 Blood Pressure 113/67 114/66 Pulse Oximetry 95 99 95 Intake/Output Intake/Output: Intake & Output 07/24/21 07/25/21 07/26/21 07/27/21 23:59 23:59 23:59 23:59 Intake Total 640 1910 1240 Output Total 900 1200 1200 Balance -260 710 40 Meds/Results Medications: Active Medications Generic Name Dose Route Start Last Admin Trade Name Freq PRN Reason Stop Dose Admin Acetaminophen 1,000 mg 07/25/21 22:00 07/27/21 06:20 Acetaminophen 500 Mg Tablet PO 1,000 mg Q8H STAN Administration Albuterol 1 puff 07/24/21 15:15 Albuterol Sulfate (*Sp) Aerosol 1 Puff INHALATION PRN PRN shortness of breath or wheezing Aspirin 325 mg 07/25/21 21:00 07/27/21 08:50 Aspirin 325 Mg Enteric Tablet PO 325 mg Q12HR STAN Administration Baclofen 10 mg 07/24/21 17:00 07/27/21 08:50 Baclofen 10 Mg Tablet PO 10 mg TID STAN Administration Bupropion HCl 150 mg 07/25/21 09:00 07/27/21 08:50 Bupropion Hcl Xl (24 Hr) 150 Mg Tabcr PO 150 mg DAILY STAN Administration Citalopram Hydrobromide 20 mg 07/25/21 09:00 07/27/21 08:50 Citalopram Hydrobromide 20 Mg Tablet PO 20 mg DAILY STAN Administration Docusate Sodium 100 mg 07/25/21 17:00 07/27/21 08:50 Docusate Sodium 100 Mg Capsule PO 100 mg BID STAN Administration Lidocaine 1 patch 07/24/21 09:00 07/27/21 08:49 Lidocaine 5% Patch TRANSDERM 1 patch DAILY STAN Administration Magnesium Hydroxide 30 ml 07/25/21 15:33 07/27/21 08:51 Magnesium Hydroxide Susp 30 Ml Udc PO 30 ml BID PRN Administration Constipation Methylprednisolone 4 mg 07/26/21 06:30 07/27/21 06:21 Methylprednisolone (Medrol) Dosepack 4 Mg Tablets PO 07/31/21 07:29 4 mg 0630,1200,1700 STAN Administration Taper Ondansetron HCl 4 mg 07/25/21 15:33 Ondansetron Inj 4 Mg/2 Ml Vial IV PUSH Q4H PRN Nausea And Vomiting Pantoprazole Sodium 40 mg 07/24/21 21:00 07/27/21 08:50 Pantoprazole 40 Mg Tablet PO 40 mg Q12HR STAN Administration Rosuvastatin Calcium 10 mg 07/24/21 18:00 07/26/21 17:19 Rosuvastatin 10 Mg Tablet PO 10 mg QPM STAN Administration Tapentadol 50 mg 07/25/21 15:33 07/26/21 17:24 Tapentadol Hcl (*Crx) 50 Mg Tablet PO 50 mg Q4H PRN Administration Pain Rated 7-10 Valsartan 160 mg 07/25/21 09:00 07/27/21 08:50 Valsartan 160 Mg Tablet PO 160 mg DAILY STAN Administration Zolpidem Tartrate 10 mg 07/24/21 17:31 07/26/21 20:39 Zolpidem Tartrate (*Crx) 5 Mg Tablet PO 10 mg HS PRN Administration Insomnia Radiology Results: ITS Impressions Knee X-Ray 07/23/21 20:26 IMPRESSION: No fracture or dislocation or joint effusion Minimal osteoarthritis Hip/Pelvis X-Ray 07/23/21 21:09 IMPRESSION: No pelvic or left hip fracture Mild left hip osteoarthritis Ankle X-Ray 07/24/21 08:25 IMPRESSION: 1. Improvement to near anatomic alignment and splinting of the left tibial and fibular fractures. Ankle CT 07/24/21 09:19 IMPRESSION: 1. Mildly displaced and angulated oblique fracture of the distal left fibular diaphysis. 2. Comminuted intra-articular fracture of the distal tibia involving the posterior malleolus and posterior aspect of medial malleolus with minimal to mild depression of a small portion of the posterior articular surface of the tibial plafond and with detailed above. Lumbar Spine X-Ray 07/24/21 22:29 IMPRESSION: Mild degenerative change Intraoperative X-Ray 07/25/21 13:57 IMPRESSION: Fluoroscopy used during left ankle open reduction internal fixation. Quality VTE Prophylaxis VTE prophylaxis: mechanical ordered and pharmacologic ordered (Daily aspirin)
[2021-07-27] MEDS: TAPENTADOL HCL (*CRX) 50 MG TABLET PO ×2 (11:35→16:40)
[2021-07-27 14:00] VITALS: BP 124/78; PULSE 86; RESP 20; TEMP 36.8; O2SAT 97
--- NOTE | 2021-07-27 14:01 | PM.PNORT ---
Progress Note: A&P Assessment and Plan (1) Closed fracture of distal end of left tibia: Qualifiers: Encounter type: subsequent encounter Fracture alignment: nondisplaced Fracture healing: with routine healing Fracture morphology: pilon Qualified Code(s): S82.875D - Nondisplaced pilon fracture of left tibia, subsequent encounter for closed fracture with routine healing Code(s): S82.302A - Unspecified fracture of lower end of left tibia, initial encounter for closed fracture Status: Acute (2) Fracture of left fibula, shaft: Qualifiers: Encounter type: subsequent encounter Fracture alignment: nondisplaced Fracture healing: with routine healing Fracture morphology: spiral Fracture type: closed Qualified Code(s): S82.445D - Nondisplaced spiral fracture of shaft of left fibula, subsequent encounter for closed fracture with routine healing Code(s): S82.402A - Unspecified fracture of shaft of left fibula, initial encounter for closed fracture Status: Acute (3) Syndesmotic disruption of left ankle: Qualifiers: Encounter type: subsequent encounter Qualified Code(s): S93.432D - Sprain of tibiofibular ligament of left ankle, subsequent encounter Code(s): S93.432A - Sprain of tibiofibular ligament of left ankle, initial encounter Status: Acute (4) Sciatica: Qualifiers: Laterality: left Qualified Code(s): M54.32 - Sciatica, left side Code(s): M54.30 - Sciatica, unspecified side Status: Acute Assessment and Plan: 61-year-old female who is status post ORIF left distal fibular shaft fracture along with open syndesmotic stabilization. Her therapy was started and she has already noted improvement especially with the sciatica. She will be following up in our office in 2 weeks for staple removal and wound recheck. She will continue to take daily 325 mg aspirin for DVT prophylaxis. From an orthopedic standpoint, she can be discharged. I feel that senior care is a good idea for her for continued therapy and safety performing ADLs. She has a meeting with 2 senior care facility representatives this afternoon and will make a decision on where to go after she meets with them. Subjective Subjective Date/Time Seen: 07/27/21 14:01 61-year-old female who is postop day 2 after ORIF of left ankle. She was having some anterior knee pain after therapy, otherwise no new complaints. The pain is isolated to the anterior knee and does not radiate to the posterior nor down the calf. She denies any redness or swelling. She is able to wiggle her toes and denies any paresthesias to the distal foot. She is agreeable to be discharged to senior care. She will be meeting with coordinators from 2 facilities this afternoon to decide on where to go. She states that her sciatica is feeling better today. Overall her pain level is well controlled with current regimen. Review of Systems Review of Systems: All systems reviewed & are unremarkable except as noted in HPI and below Constitutional: Constitutional: Reports no additional constitutional complaints Eyes: Eyes: Reports no additional eye complaints ENT: Reports system reviewed and no additional complaints, except as documented Cardiovascular: Cardiovascular: Reports no additional cardiovascular complaints Respiratory: Respiratory: Reports no additional respiratory complaints Gastrointestinal: Gastrointestinal: Reports no additional gastrointestinal complaints Genitourinary: Genitourinary: Reports no additional female genitourinary complaints Musculoskeletal: Comments: She does report low back and sciatica that is improved with steroids and therapy. Integumentary/Breasts: Skin/Breast: Reports system reviewed and no additional complaints, except as docu Neurologic: Reports system reviewed and no additional complaints, except as documented Psychiatric: Psychiatric: Reports no additional psychia
[2021-07-27] MEDS: ZOLPIDEM TARTRATE (*CRX) 5 MG TABLET 10 MG PO (21:08)
[2021-07-27] MEDS: ROSUVASTATIN 10 MG TABLET PO (21:11)
[2021-07-27 21:46] VITALS: BP 134/90; PULSE 102; RESP 16; TEMP 36.8; O2SAT 92
[2021-07-28] MEDS: TAPENTADOL HCL (*CRX) 50 MG TABLET PO ×5 (05:13→22:43)
[2021-07-28] MEDS: methylPREDNISolone (MEDROL) DOSEPACK 4 MG TABLETS PO ×4 (05:14→22:42)
[2021-07-28 05:42] VITALS: BP 162/88; PULSE 97; RESP 18; TEMP 36.2; O2SAT 98
[2021-07-28 08:45] LABS: Hematocrit 34.1 % (37.0-47.0); Hemoglobin 11.4 g/dL (12.0-15.0); Mean Corpuscular HGB Conc 33.4 g/dl (32-36); Mean Corpuscular Hemoglobin 29.7 pg (26-34); Mean Corpuscular Volume 88.8 fl (80-100); Platelet Count Result 281 k/mm3 (150-375); Red Blood Count 3.84 M/mm3 (4.2-5.4); Red Cell Distribution Width 13.2 % (11.5-14.5); White Blood Count 7.6 K/mm3 (4.5-10.0)
[2021-07-28 09:08] LABS: Anion Gap 6 mmol/L (8-16); Blood Urea Nitrogen 16 mg/dL (7-17); Calcium 8.8 mg/dL (8.4-10.2); Carbon Dioxide 29 mmol/L (22-30); Chloride 103 mmol/L (98-107); Estimated CRCL calculation 73 ml/min; Estimated Glomerular Filt Rate > 60; Glucose 107 mg/dL (65-110); Potassium 4.4 mmol/L (3.4-5.0); Sodium 138 mmol/L (137-145)
[2021-07-28] MEDS: BACLOFEN 10 MG TABLET PO ×3 (10:10→17:19)
[2021-07-28] MEDS: VALSARTAN 160 MG TABLET PO (10:11)
[2021-07-28] MEDS: CITALOPRAM HYDROBROMIDE 20 MG TABLET PO (10:11)
[2021-07-28] MEDS: DOCUSATE SODIUM 100 MG CAPSULE PO ×2 (10:11→17:18)
[2021-07-28] MEDS: buPROPion HCL XL (24 HR) 150 MG TABCR PO (10:11)
[2021-07-28] MEDS: ASPIRIN 325 MG ENTERIC TABLET PO ×2 (10:11→22:41)
[2021-07-28] MEDS: PANTOPRAZOLE 40 MG TABLET PO ×2 (10:11→22:43)
[2021-07-28] MEDS: LIDOCAINE 5% PATCH 1 PATCH TRANSDERM (10:15)
[2021-07-28] MEDS: ACETAMINOPHEN 500 MG TABLET 1000 MG PO ×2 (13:25→22:41)
[2021-07-28 14:00] VITALS: BP 117/56; PULSE 99; RESP 16; TEMP 36.3; O2SAT 98
--- NOTE | 2021-07-28 16:59 | PM.IMPN ---
Progress Note: A&P Assessment and Plan (1) Closed fracture of distal end of left tibia: Qualifiers: Encounter type: subsequent encounter Fracture alignment: nondisplaced Fracture healing: with routine healing Fracture morphology: pilon Qualified Code(s): S82.875D - Nondisplaced pilon fracture of left tibia, subsequent encounter for closed fracture with routine healing Code(s): S82.302A - Unspecified fracture of lower end of left tibia, initial encounter for closed fracture Status: Acute Assessment and Plan: Patient is POD 3 ORIF left distal fibula fracture with syndesmotic stabilization. Currently awaiting placement to [facility] for acute rehabilitation. Orthopedics will managed as an outpatient. (2) Closed fracture of distal end of left fibula: Code(s): S82.832A - Other fracture of upper and lower end of left fibula, initial encounter for closed fracture Status: Deleted Assessment and Plan: Management per Ortho. Pain management is adequate. Encouraged= daily physical therapy. (3) Low back pain: Code(s): M54.50 - Low back pain, unspecified Status: Acute Assessment and Plan: Improving. Continue lidocaine patch p.r.n.. (4) BMI 37.0-37.9, adult: Code(s): Z68.37 - Body mass index [BMI] 37.0-37.9, adult Status: Acute Assessment and Plan: Diet and exercise. (5) Benign essential hypertension: Code(s): I10 - Essential (primary) hypertension Status: Acute Assessment and Plan: Blood pressure controlled at 117/56 today. Hold valsartan if blood pressure less [id number]/90 tomorrow. (6) Hyperlipidemia: Qualifiers: Hyperlipidemia type: mixed hyperlipidemia Qualified Code(s): E78.2 - Mixed hyperlipidemia Code(s): E78.5 - Hyperlipidemia, unspecified Status: Acute Assessment and Plan: Continue statin. (7) Insomnia: Qualifiers: Insomnia type: unspecified Qualified Code(s): G47.00 - Insomnia, unspecified Code(s): G47.00 - Insomnia, unspecified Status: Acute Assessment and Plan: The zolpidem p.r.n. at bedtime. Subjective Date/time seen: 07/28/21 10:59 S: Patient was examined at the bedside. She had a spasm of lower back and has experienced severe pain. At the time of high specimen pain was already improving after adequate pain medication. Patient is stable hemodynamically afebrile. She has been tolerating physical therapy oral intake is adequate and sleep is good. Review of Systems Review of Systems: All systems reviewed & are unremarkable except as noted in HPI and below Constitutional: Constitutional: Reports no additional constitutional complaints Eyes: Eyes: Reports no additional eye complaints ENT: Reports system reviewed and no additional complaints, except as documented Cardiovascular: Cardiovascular: Reports no additional cardiovascular complaints Respiratory: Respiratory: Reports no additional respiratory complaints Gastrointestinal: Gastrointestinal: Reports no additional gastrointestinal complaints Genitourinary: Genitourinary: Reports no additional female genitourinary complaints Musculoskeletal: Musculoskeletal: Reports no additional musculoskeletal complaints Integumentary/Breasts: Skin/Breast: Reports system reviewed and no additional complaints, except as docu Neurologic: Reports system reviewed and no additional complaints, except as documented Psychiatric: Psychiatric: Reports no additional psychiatric complaints Exam Const: General: comfortable and no acute distress HENMT: Mouth: Yes moist mucous membranes Eyes: General: appearance normal, both eyes and all related structures Sclera: sclerae normal Neck: Neck: supple and no JVD Thyroid: thyroid normal Carotids: no bruits Lymphatic: lymphadenopathy not noted Resp: Effort & Inspection: normal respiratory effort Auscultation: clear to auscultation bilaterally Ca
--- NOTE | 2021-07-28 16:59 | P.DS_ITS ---
DS: Summary Time Spent with Patient Time attestation: Total time spent providing and/or coordinating discharge ser vices: DS: Data Data Completed and Pending Labs on day of discharge: Labs from last 24 hours 07/28/21 07/28/21 07:58 07:58 WBC 7.6 RBC 3.84 L Hgb 11.4 L Hct 34.1 L MCV 88.8 MCH 29.7 MCHC 33.4 RDW 13.2 Plt Count 281 MPV 10.0 Sodium 138 Potassium 4.4 Chloride 103 Carbon Dioxide 29 Anion Gap 6 L BUN 16 Creatinine 0.80 Estim Creat Clear Calc 73 Estimated GFR > 60 Glucose 107 Calcium 8.8 Discharge Plan Discharge Attending physician on discharge: Suzanne Hollingsworth Consulting providers: Isaac Carrillo Discharging Clinician: Suzanne Hollingsworth Anticipated Discharge Date/Time: 07/28/21 17:00 Patient Disposition: SNF Activity: january shower Diet: heart healthy Wound Care Instructions: follow printed instructions Discharge Instructions: For Dr. Carrillo: * Do not remove the dressing from the left lower extremity. * Keep the left lower extremity dressing clean and dry. * Okay to use a knee cart with the left leg for mobility. * Will need to follow-up the week of . Please call for appointment: [phone] * Strictly nonweightbearing left lower extremity for two months. Must use a walker, wheelchair, or knee cart during this time. Patient Instructions: Ankle Fracture (DC) Stand Alone Forms: General Discharge Information Follow-up/Referrals: Giorgio Garcia MD [Primary Care Provider] - 1 Week Isaac Carrillo MD [Physician] - Discharge Medications: New Nucynta 50 mg Tablet 50 mg PO Q4H PRN (Reason: Pain Rated 7-10) Qty: 12 RF: 0 acetaminophen 500 mg Tablet 1,000 mg PO Q8H Qty: 30 RF: 0 aspirin 325 mg Tablet,Delayed Release (Dr/Ec) 325 mg PO Q12HR 30 Days Qty: 60 RF: 0 lidocaine [Lidoderm] 5 % Adhesive Patch,Medicated 1 patch transdermal DAILY Qty: 12 RF: 0 docusate sodium 100 mg Capsule 100 mg PO BID Qty: 30 RF: 0 methylprednisolone 4 mg Tablets,Dose Pack 4 mg PO 0630,1200,1700,2100 Qty: 21 RF: 0 Continued ibuprofen 600 mg tablet 600 mg PO Q6H PRN (Reason: pain) Qty: 14 RF: 0 omeprazole 40 mg capsule,delayed release(DR/EC) 40 mg PO DAILY RF: 0 tramadol 50 mg tablet 100 mg PO Q4-6H PRN (Reason: pain) RF: 0 citalopram 20 mg tablet 20 mg PO DAILY RF: 0 methylprednisolone [Medrol ([place])] 4 mg tablets,dose pack 4 mg PO BID RF: 0 albuterol sulfate 90 mcg/actuation HFA aerosol inhaler 1 inh inhalation PRN PRN (Reason: shortness of breath or wheezing) RF: 0 valsartan 160 mg tablet 160 mg PO DAILY RF: 0 rosuvastatin 10 mg tablet 10 mg PO QPM RF: 0 bupropion HCl 150 mg tablet extended release 24 hr 150 mg PO DAILY RF: 0 zolpidem 12.5 mg tablet,ext release multiphase 12.5 mg PO QPM RF: 0 baclofen 10 mg tablet See Rx Instructions .ROUTE .COMPLEX Qty: 270 RF: 3 Date of admission: 07/26/21 16:04 Primary Care Provider: Giorgio Garcia Admitting Provider: Chhaya Gilmore Attending physician on admission: Chhaya Gilmore Condition: Stable Quality VTE Prophylaxis VTE prophylaxis: pharmacologic ordered (Daily aspirin)
[2021-07-28] MEDS: ROSUVASTATIN 10 MG TABLET PO (17:18)
[2021-07-28 21:47] VITALS: BP 124/76; PULSE 88; RESP 18; TEMP 36.7; O2SAT 96
[2021-07-28] MEDS: ZOLPIDEM TARTRATE (*CRX) 5 MG TABLET 10 MG PO (22:41)
[2021-07-29 05:38] VITALS: BP 129/77; PULSE 80; RESP 18; TEMP 36.2; O2SAT 95
[2021-07-29] MEDS: methylPREDNISolone (MEDROL) DOSEPACK 4 MG TABLETS PO ×3 (06:23→21:50)
[2021-07-29] MEDS: ACETAMINOPHEN 500 MG TABLET 1000 MG PO ×3 (06:23→21:51)
--- NOTE | 2021-07-29 07:31 | PM.IMPN ---
Subjective Date/time seen: 07/29/21 07:31 Objective Data Vital Signs Vital Signs: Vital Signs - 24 hr 07/28/21 14:00 07/28/21 21:47 07/29/21 05:38 Temperature 97.3 F L 98.0 F 97.2 F L Pulse Rate 99 88 80 Respiratory Rate 16 18 18 Blood Pressure 117/56 L 124/76 129/77 Pulse Oximetry 98 96 95 Intake/Output Intake/Output: Intake & Output 07/26/21 07/27/21 07/28/21 07/29/21 23:59 23:59 23:59 23:59 Intake Total 1910 1950 1860 750 Output Total 1200 1200 2000 2000 Balance 710 170 -140 -6014 Meds/Results Medications: Active Medications Generic Name Dose Route Start Last Admin Trade Name Freq PRN Reason Stop Dose Admin Acetaminophen 1,000 mg 07/25/21 22:00 07/29/21 06:23 Acetaminophen 500 Mg Tablet PO 1,000 mg Q8H STAN Administration Albuterol 1 puff 07/24/21 15:15 Albuterol Sulfate (*Sp) Aerosol 1 Puff INHALATION PRN PRN shortness of breath or wheezing Aspirin 325 mg 07/25/21 21:00 07/28/21 22:41 Aspirin 325 Mg Enteric Tablet PO 325 mg Q12HR STAN Administration Baclofen 10 mg 07/24/21 17:00 07/28/21 17:19 Baclofen 10 Mg Tablet PO 10 mg TID STAN Administration Bupropion HCl 150 mg 07/25/21 09:00 07/28/21 10:11 Bupropion Hcl Xl (24 Hr) 150 Mg Tabcr PO 150 mg DAILY STAN Administration Citalopram Hydrobromide 20 mg 07/25/21 09:00 07/28/21 10:11 Citalopram Hydrobromide 20 Mg Tablet PO 20 mg DAILY STAN Administration Docusate Sodium 100 mg 07/25/21 17:00 07/28/21 17:18 Docusate Sodium 100 Mg Capsule PO 100 mg BID STAN Administration Lidocaine 1 patch 07/24/21 09:00 07/28/21 10:15 Lidocaine 5% Patch TRANSDERM 1 patch DAILY STAN Administration Magnesium Hydroxide 30 ml 07/25/21 15:33 07/27/21 08:51 Magnesium Hydroxide Susp 30 Ml Udc PO 30 ml BID PRN Administration Constipation Methylprednisolone 4 mg 07/26/21 06:30 07/29/21 06:23 Methylprednisolone (Medrol) Dosepack 4 Mg Tablets PO 07/31/21 07:29 4 mg 0630,1200,2100 STAN Administration Taper Ondansetron HCl 4 mg 07/25/21 15:33 Ondansetron Inj 4 Mg/2 Ml Vial IV PUSH Q4H PRN Nausea And Vomiting Pantoprazole Sodium 40 mg 07/24/21 21:00 07/28/21 22:43 Pantoprazole 40 Mg Tablet PO 40 mg Q12HR STAN Administration Rosuvastatin Calcium 10 mg 07/24/21 18:00 07/28/21 17:18 Rosuvastatin 10 Mg Tablet PO 10 mg QPM STAN Administration Tapentadol 50 mg 07/25/21 15:33 07/28/21 22:43 Tapentadol Hcl (*Crx) 50 Mg Tablet PO 50 mg Q4H PRN Administration Pain Rated 7-10 Valsartan 160 mg 07/25/21 09:00 07/28/21 10:11 Valsartan 160 Mg Tablet PO 160 mg DAILY STAN Administration Zolpidem Tartrate 10 mg 07/24/21 17:31 07/28/21 22:41 Zolpidem Tartrate (*Crx) 5 Mg Tablet PO 10 mg HS PRN Administration Insomnia Radiology Results: ITS Impressions Knee X-Ray 07/23/21 20:26 IMPRESSION: No fracture or dislocation or joint effusion Minimal osteoarthritis Hip/Pelvis X-Ray 07/23/21 21:09 IMPRESSION: No pelvic or left hip fracture Mild left hip osteoarthritis Ankle X-Ray 07/24/21 08:25 IMPRESSION: 1. Improvement to near anatomic alignment and splinting of the left tibial and fibular fractures. Ankle CT 07/24/21 09:19 IMPRESSION: 1. Mildly displaced and angulated oblique fracture of the distal left fibular diaphysis. 2. Comminuted intra-articular fracture of the distal tibia involving the posterior malleolus and posterior aspect of medial malleolus with minimal to mild depression of a small portion of the posterior articular surface of the tibial plafond and with detailed above. Lumbar Spine X-Ray 07/24/21 22:29 IMPRESSION: Mild degenerative change Intraoperative X-Ray 07/25/21 13:57 IMPRESSION: Fluoroscopy used during left ankle open reduction internal fixation. Labs Labs: Laboratory Results - last 24 hr 07/28/21 07/28/21 07:
[2021-07-29 08:00] VITALS: PULSE 80; RESP 18; O2SAT 95
[2021-07-29] MEDS: TAPENTADOL HCL (*CRX) 50 MG TABLET PO ×4 (08:06→21:58)
[2021-07-29] MEDS: LIDOCAINE 5% PATCH 1 PATCH TRANSDERM (08:07)
[2021-07-29] MEDS: DOCUSATE SODIUM 100 MG CAPSULE PO ×2 (08:18→17:18)
[2021-07-29] MEDS: VALSARTAN 160 MG TABLET PO (08:18)
[2021-07-29] MEDS: BACLOFEN 10 MG TABLET PO ×3 (08:19→17:18)
[2021-07-29] MEDS: CITALOPRAM HYDROBROMIDE 20 MG TABLET PO (08:19)
[2021-07-29] MEDS: ASPIRIN 325 MG ENTERIC TABLET PO ×2 (08:19→21:56)
[2021-07-29] MEDS: PANTOPRAZOLE 40 MG TABLET PO ×2 (08:19→21:51)
[2021-07-29] MEDS: buPROPion HCL XL (24 HR) 150 MG TABCR PO (08:19)
[2021-07-29 13:59] VITALS: BP 121/71; PULSE 96; RESP 18; TEMP 36.7; O2SAT 96
[2021-07-29] MEDS: ROSUVASTATIN 10 MG TABLET PO (18:45)
[2021-07-29] MEDS: ZOLPIDEM TARTRATE (*CRX) 5 MG TABLET 10 MG PO (21:58)
[2021-07-29 22:00] VITALS: BP 135/80; PULSE 86; RESP 18; TEMP 36.4; O2SAT 97
[2021-07-30] MEDS: TAPENTADOL HCL (*CRX) 50 MG TABLET PO ×5 (02:33→20:53)
[2021-07-30 05:44] VITALS: BP 108/86; PULSE 85; RESP 16; TEMP 36.3; O2SAT 97
[2021-07-30 06:32] LABS: Hematocrit 37.5 % (37.0-47.0); Hemoglobin 12.5 g/dL (12.0-15.0); Mean Corpuscular HGB Conc 33.3 g/dl (32-36); Mean Corpuscular Hemoglobin 30.6 pg (26-34); Mean Corpuscular Volume 91.7 fl (80-100); Mean Platelet Volume 9.4 fl (7.4-10.4); Platelet Count Result 304 k/mm3 (150-375); Red Blood Count 4.09 M/mm3 (4.2-5.4); Red Cell Distribution Width 13.1 % (11.5-14.5); White Blood Count 7.4 K/mm3 (4.5-10.0)
[2021-07-30] MEDS: methylPREDNISolone (MEDROL) DOSEPACK 4 MG TABLETS PO ×2 (06:38→22:35)
[2021-07-30] MEDS: ACETAMINOPHEN 500 MG TABLET 1000 MG PO ×3 (06:39→20:54)
[2021-07-30 06:45] LABS: Anion Gap 8 mmol/L (8-16); Blood Urea Nitrogen 21 mg/dL (7-17); Calcium 8.8 mg/dL (8.4-10.2); Carbon Dioxide 28 mmol/L (22-30); Chloride 103 mmol/L (98-107); Estimated CRCL calculation 66 ml/min; Estimated Glomerular Filt Rate > 60; Glucose 96 mg/dL (65-110); Potassium 4.1 mmol/L (3.4-5.0); Sodium 139 mmol/L (137-145)
[2021-07-30 08:00] VITALS: PULSE 85; RESP 16; O2SAT 97
[2021-07-30] MEDS: LIDOCAINE 5% PATCH 2 PATCH TRANSDERM (09:18)
[2021-07-30] MEDS: CITALOPRAM HYDROBROMIDE 20 MG TABLET PO (09:19)
[2021-07-30] MEDS: ASPIRIN 325 MG ENTERIC TABLET PO ×2 (09:19→20:53)
[2021-07-30] MEDS: buPROPion HCL XL (24 HR) 150 MG TABCR PO (09:19)
[2021-07-30] MEDS: VALSARTAN 160 MG TABLET PO (09:19)
[2021-07-30] MEDS: DOCUSATE SODIUM 100 MG CAPSULE PO ×2 (09:19→16:54)
[2021-07-30] MEDS: BACLOFEN 10 MG TABLET PO ×3 (09:19→16:54)
[2021-07-30] MEDS: PANTOPRAZOLE 40 MG TABLET PO ×2 (12:44→20:54)
[2021-07-30 14:13] VITALS: BP 108/70; PULSE 96; RESP 14; TEMP 36.6; O2SAT 96
--- NOTE | 2021-07-30 15:06 | PM.IMPN ---
Progress Note: A&P Assessment and Plan (1) Closed fracture of distal end of left tibia: Qualifiers: Encounter type: subsequent encounter Fracture alignment: nondisplaced Fracture healing: with routine healing Fracture morphology: pilon Qualified Code(s): S82.875D - Nondisplaced pilon fracture of left tibia, subsequent encounter for closed fracture with routine healing Code(s): S82.302A - Unspecified fracture of lower end of left tibia, initial encounter for closed fracture Status: Acute Assessment and Plan: Patient is POD 5 ORIF left distal fibula fracture with syndesmotic stabilization. Currently awaiting placement to SNF for acute rehabilitation. Insurance authorization is pending Orthopedics will managed as an outpatient. (2) Closed fracture of distal end of left fibula: Code(s): S82.832A - Other fracture of upper and lower end of left fibula, initial encounter for closed fracture Status: Deleted Assessment and Plan: Management per Ortho. Pain management is adequate. Encouraged daily physical therapy. (3) Low back pain: Code(s): M54.50 - Low back pain, unspecified Status: Acute Assessment and Plan: Improving. Continue lidocaine patch p.r.n.. Continue tapentadol on p.r.n. basis. Continue Medrol Dosepak for 5 days. (4) BMI 37.0-37.9, adult: Code(s): Z68.37 - Body mass index [BMI] 37.0-37.9, adult Status: Acute Assessment and Plan: Diet and exercise. (5) Benign essential hypertension: Code(s): I10 - Essential (primary) hypertension Status: Acute Assessment and Plan: Blood pressure within acceptable range. Hold valsartan if blood pressure less than 140/90 tomorrow. (6) Hyperlipidemia: Qualifiers: Hyperlipidemia type: mixed hyperlipidemia Qualified Code(s): E78.2 - Mixed hyperlipidemia Code(s): E78.5 - Hyperlipidemia, unspecified Status: Acute Assessment and Plan: Continue statin. (7) Insomnia: Qualifiers: Insomnia type: unspecified Qualified Code(s): G47.00 - Insomnia, unspecified Code(s): G47.00 - Insomnia, unspecified Status: Acute Assessment and Plan: zolpidem p.r.n. at bedtime. Subjective Date/time seen: 07/30/21 15:06 She was complaining of back pain with only mild ache at her surgical site. She had significant back pain last night. She denied have any weakness in her lower extremities. Review of Systems Review of Systems: All systems reviewed & are unremarkable except as noted in HPI and below Exam Narrative: General awake and alert not in acute distress CVS S1-S2 no murmur Respiratory no wheezes or crepitation respiration nonlabored GI soft nontender nondistended no hepatosplenomegaly [employer] alert oriented x3 and grossly nonfocal neurological exam Psychiatric cooperative appropriate mood and affect Extremities surgical site intended Objective Data Vital Signs Vital Signs: Vital Signs - 24 hr 07/29/21 22:00 07/30/21 05:44 07/30/21 08:00 Temperature 36.4 C 36.3 C L Pulse Rate 86 85 85 Respiratory Rate 18 16 16 Blood Pressure 135/80 108/86 Pulse Oximetry 97 97 97 07/30/21 14:13 Temperature 36.6 C Pulse Rate 96 Respiratory Rate 14 Blood Pressure 108/70 Pulse Oximetry 96 Intake/Output Intake/Output: Intake & Output 07/27/21 07/28/21 07/29/21 07/30/21 23:59 23:59 23:59 23:59 Intake Total 1950 1860 1230 630 Output Total 1200 1999 1999 Balance 397 -430 -907 630 Meds/Results Medications: Active Medications Generic Name Dose Route Start Last Admin Trade Name Freq PRN Reason Stop Dose Admin Acetaminophen 1,000 mg 07/25/21 22:00 07/30/21 06:39 Acetaminophen 500 Mg Tablet PO 1,000 mg Q8H STAN Administration Albuterol 1 puff 07/24/21 15:15 Albuterol Sulfate (*Sp) Aerosol 1 Puff INHALATION PRN PRN shortness of breath or wheezing Aspirin 325 mg 1
[2021-07-30] MEDS: ROSUVASTATIN 10 MG TABLET PO (17:00)
[2021-07-30] MEDS: ZOLPIDEM TARTRATE (*CRX) 5 MG TABLET 10 MG PO (20:54)
[2021-07-30 21:45] VITALS: BP 114/83; PULSE 82; RESP 16; TEMP 36.3; O2SAT 95
[2021-07-31] MEDS: TAPENTADOL HCL (*CRX) 50 MG TABLET PO ×6 (00:49→22:28)
[2021-07-31 05:34] VITALS: BP 95/70; PULSE 85; RESP 12; TEMP 36.1; O2SAT 95
[2021-07-31] MEDS: ACETAMINOPHEN 500 MG TABLET 1000 MG PO ×3 (06:53→20:52)
[2021-07-31 08:00] VITALS: PULSE 85; RESP 12; O2SAT 95
[2021-07-31] MEDS: methylPREDNISolone (MEDROL) DOSEPACK 4 MG TABLETS PO (08:06)
[2021-07-31] MEDS: VALSARTAN 160 MG TABLET PO (09:50)
[2021-07-31] MEDS: BACLOFEN 10 MG TABLET PO ×3 (09:50→18:01)
[2021-07-31] MEDS: CITALOPRAM HYDROBROMIDE 20 MG TABLET PO (09:50)
[2021-07-31] MEDS: PANTOPRAZOLE 40 MG TABLET PO ×2 (09:50→20:51)
[2021-07-31] MEDS: DOCUSATE SODIUM 100 MG CAPSULE PO ×2 (09:50→18:01)
[2021-07-31] MEDS: buPROPion HCL XL (24 HR) 150 MG TABCR PO (09:50)
[2021-07-31] MEDS: LIDOCAINE 5% PATCH 2 PATCH TRANSDERM (09:50)
[2021-07-31] MEDS: ASPIRIN 325 MG ENTERIC TABLET PO ×2 (09:50→20:52)
--- NOTE | 2021-07-31 12:44 | PM.IMPN ---
Progress Note: A&P Assessment and Plan (1) Closed fracture of distal end of left tibia: Qualifiers: Encounter type: subsequent encounter Fracture alignment: nondisplaced Fracture healing: with routine healing Fracture morphology: pilon Qualified Code(s): S82.875D - Nondisplaced pilon fracture of left tibia, subsequent encounter for closed fracture with routine healing Code(s): S82.302A - Unspecified fracture of lower end of left tibia, initial encounter for closed fracture Status: Acute Assessment and Plan: Patient is POD 6 ORIF left distal fibula fracture with syndesmotic stabilization. Currently awaiting placement to SNF for acute rehabilitation. Insurance authorization is pending. Orthopedics will managed as an outpatient. (2) Closed fracture of distal end of left fibula: Code(s): S82.832A - Other fracture of upper and lower end of left fibula, initial encounter for closed fracture Status: Deleted Assessment and Plan: Management per Ortho. Pain management is adequate. Encouraged daily physical therapy. PT will continue to follow. (3) Low back pain: Code(s): M54.50 - Low back pain, unspecified Status: Acute Assessment and Plan: Improving. Continue lidocaine patch p.r.n.. Continue tapentadol on p.r.n. basis. PT OT will continue to follow. Continue Medrol Dosepak for 5 days. (4) BMI 37.0-37.9, adult: Code(s): Z68.37 - Body mass index [BMI] 37.0-37.9, adult Status: Acute Assessment and Plan: Diet and exercise. (5) Benign essential hypertension: Code(s): I10 - Essential (primary) hypertension Status: Acute Assessment and Plan: Blood pressure within acceptable range. Continue valsartan at current dose. (6) Hyperlipidemia: Qualifiers: Hyperlipidemia type: mixed hyperlipidemia Qualified Code(s): E78.2 - Mixed hyperlipidemia Code(s): E78.5 - Hyperlipidemia, unspecified Status: Acute Assessment and Plan: Continue statin. (7) Insomnia: Qualifiers: Insomnia type: unspecified Qualified Code(s): G47.00 - Insomnia, unspecified Code(s): G47.00 - Insomnia, unspecified Status: Acute Assessment and Plan: zolpidem p.r.n. at bedtime. Additional Plan She will be discharged to SNF once insurance authorization is received likely tomorrow on Sunday. Subjective Date/time seen: 07/31/21 12:44 She is feeling much better today with no significant back pain. She has only mild at [place]/pain at her surgical site only after she has physical therapy. She denied have any significant symptoms of chest pain shortness of breath nausea vomiting abdominal pain. Review of Systems Review of Systems: All systems reviewed & are unremarkable except as noted in HPI and below Exam Narrative: General awake and alert not in acute distress CVS S1-S2 no murmur Respiratory no wheezes or crepitation respiration nonlabored GI soft nontender nondistended no hepatosplenomegaly [employer]ATOR alert oriented x3 and grossly nonfocal neurological exam Psychiatric cooperative appropriate mood and affect Extremities surgical site intended Objective Data Vital Signs Vital Signs: Vital Signs - 24 hr 07/30/21 14:13 07/30/21 21:45 07/31/21 05:34 Temperature 36.6 C 36.3 C L 36.1 C L Pulse Rate 96 82 85 Respiratory Rate 14 16 12 Blood Pressure 108/70 114/83 95/70 L Pulse Oximetry 96 95 95 07/31/21 08:00 Temperature Pulse Rate 85 Respiratory Rate 12 Blood Pressure Pulse Oximetry 95 Intake/Output Intake/Output: Intake & Output 07/28/21 07/29/21 07/30/21 07/31/21 23:59 23:59 23:59 23:59 Intake Total 1860 1230 1970 390 Output Total 1999 1999 700 Balance -140 -770 1970 -310 Meds/Results Medications: Active Medications Generic Name Dose Route Start Last Admin Trade Name Josephq PRN Reason Stop Dose Admin Acetaminophen 1,000 mg 07/25/21
[2021-07-31 14:24] VITALS: BP 106/66; PULSE 94; RESP 16; TEMP 36.4; O2SAT 96
[2021-07-31] MEDS: ROSUVASTATIN 10 MG TABLET PO (18:01)
[2021-07-31 22:00] VITALS: BP 108/79; PULSE 87; RESP 18; TEMP 36.1; O2SAT 99
[2021-07-31] MEDS: ZOLPIDEM TARTRATE (*CRX) 5 MG TABLET 10 MG PO (22:29)
[2021-08-01] MEDS: TAPENTADOL HCL (*CRX) 50 MG TABLET PO ×5 (02:36→20:12)
[2021-08-01 06:00] VITALS: BP 96/68; PULSE 91; RESP 18; TEMP 35.9; O2SAT 97
[2021-08-01] MEDS: ACETAMINOPHEN 500 MG TABLET 1000 MG PO ×2 (06:12→14:10)
[2021-08-01] MEDS: CITALOPRAM HYDROBROMIDE 20 MG TABLET PO (07:56)
[2021-08-01] MEDS: buPROPion HCL XL (24 HR) 150 MG TABCR PO (07:56)
[2021-08-01] MEDS: BACLOFEN 10 MG TABLET PO ×3 (07:56→16:08)
[2021-08-01] MEDS: LIDOCAINE 5% PATCH 2 PATCH TRANSDERM (07:56)
[2021-08-01] MEDS: ASPIRIN 325 MG ENTERIC TABLET PO ×2 (07:56→20:12)
[2021-08-01] MEDS: DOCUSATE SODIUM 100 MG CAPSULE PO ×2 (07:57→16:10)
[2021-08-01] MEDS: PANTOPRAZOLE 40 MG TABLET PO ×2 (07:57→20:12)
[2021-08-01 08:00] VITALS: PULSE 91; RESP 18; O2SAT 97
--- NOTE | 2021-08-01 08:58 | PCPTNOTE ---
Attempted to see patient for PT at this time, however patient declined due to pain and having to eat her breakfast.
--- NOTE | 2021-08-01 11:45 | PM.IMPN ---
Progress Note: A&P Assessment and Plan (1) Closed fracture of distal end of left tibia: Qualifiers: Encounter type: subsequent encounter Fracture alignment: nondisplaced Fracture healing: with routine healing Fracture morphology: pilon Qualified Code(s): S82.875D - Nondisplaced pilon fracture of left tibia, subsequent encounter for closed fracture with routine healing Code(s): S82.302A - Unspecified fracture of lower end of left tibia, initial encounter for closed fracture Status: Acute Assessment and Plan: Patient is POD 7 ORIF left distal fibula fracture with syndesmotic stabilization. Currently awaiting placement to SNF for acute rehabilitation. Insurance authorization is pending. Orthopedics will managed as an outpatient. (2) Closed fracture of distal end of left fibula: Code(s): S82.832A - Other fracture of upper and lower end of left fibula, initial encounter for closed fracture Status: Deleted Assessment and Plan: Management per Ortho. Pain management is adequate. Encouraged daily physical therapy. PT will continue to follow. (3) Low back pain: Code(s): M54.50 - Low back pain, unspecified Status: Acute Assessment and Plan: Improving. Continue lidocaine patch p.r.n.. Continue tapentadol on p.r.n. basis. PT OT will continue to follow. Continue Medrol Dosepak for 5 days. (4) BMI 37.0-37.9, adult: Code(s): Z68.37 - Body mass index [BMI] 37.0-37.9, adult Status: Acute Assessment and Plan: Diet and exercise. (5) Benign essential hypertension: Code(s): I10 - Essential (primary) hypertension Status: Acute Assessment and Plan: Blood pressure within acceptable range. Continue valsartan at current dose. (6) Hyperlipidemia: Qualifiers: Hyperlipidemia type: mixed hyperlipidemia Qualified Code(s): E78.2 - Mixed hyperlipidemia Code(s): E78.5 - Hyperlipidemia, unspecified Status: Acute Assessment and Plan: Continue statin. (7) Insomnia: Qualifiers: Insomnia type: unspecified Qualified Code(s): G47.00 - Insomnia, unspecified Code(s): G47.00 - Insomnia, unspecified Status: Acute Assessment and Plan: zolpidem p.r.n. at bedtime. Additional Plan She will be discharged to SNF once insurance authorization is received likely tomorrow on Sunday. Subjective Date/time seen: 08/01/21 11:45 S: Patient was examined at the bedside. No complaints. Review of Systems Review of Systems: All systems reviewed & are unremarkable except as noted in HPI and below Constitutional: Constitutional: Reports no additional constitutional complaints Eyes: Eyes: Reports no additional eye complaints ENT: Reports system reviewed and no additional complaints, except as documented Cardiovascular: Cardiovascular: Reports no additional cardiovascular complaints Respiratory: Respiratory: Reports no additional respiratory complaints Gastrointestinal: Gastrointestinal: Reports no additional gastrointestinal complaints Genitourinary: Genitourinary: Reports no additional female genitourinary complaints Musculoskeletal: Musculoskeletal: Reports no additional musculoskeletal complaints Integumentary/Breasts: Skin/Breast: Reports system reviewed and no additional complaints, except as docu Neurologic: Reports system reviewed and no additional complaints, except as documented Psychiatric: Psychiatric: Reports no additional psychiatric complaints Exam Narrative: General awake and alert not in acute distress CVS S1-S2 no murmur Respiratory no wheezes or crepitation respiration nonlabored GI soft nontender nondistended no hepatosplenomegaly [employer] alert oriented x3 and grossly nonfocal neurological exam Psychiatric cooperative appropriate mood and affect Extremities surgical site intended Const: General: comfortable and no acute distress HENMT: Mout
[2021-08-01 14:40] VITALS: BP 119/71; PULSE 99; RESP 12; TEMP 36.6; O2SAT 95
[2021-08-01] MEDS: ROSUVASTATIN 10 MG TABLET PO (18:06)
[2021-08-01] MEDS: ZOLPIDEM TARTRATE (*CRX) 5 MG TABLET 10 MG PO (20:11)
[2021-08-01 21:42] VITALS: BP 101/66; PULSE 88; RESP 18; TEMP 36.4; O2SAT 97
[2021-08-02] MEDS: TAPENTADOL HCL (*CRX) 50 MG TABLET PO ×5 (00:02→21:57)
[2021-08-02] MEDS: ACETAMINOPHEN 500 MG TABLET 1000 MG PO ×4 (00:04→21:57)
[2021-08-02 05:50] VITALS: BP 101/58; PULSE 84; RESP 18; TEMP 36.8; O2SAT 97
[2021-08-02 08:00] VITALS: PULSE 84; RESP 18; O2SAT 97
--- NOTE | 2021-08-02 08:11 | PCNWS ---
Weekly nutritional screen. Patient is tolerating current diet with adequate intake. No nutritional needs at this time.
[2021-08-02] MEDS: ASPIRIN 325 MG ENTERIC TABLET PO ×2 (08:18→21:57)
[2021-08-02] MEDS: DOCUSATE SODIUM 100 MG CAPSULE PO ×2 (08:18→17:10)
[2021-08-02] MEDS: buPROPion HCL XL (24 HR) 150 MG TABCR PO (08:18)
[2021-08-02] MEDS: PANTOPRAZOLE 40 MG TABLET PO ×2 (08:18→21:58)
[2021-08-02] MEDS: BACLOFEN 10 MG TABLET PO ×3 (08:18→17:10)
[2021-08-02] MEDS: CITALOPRAM HYDROBROMIDE 20 MG TABLET PO (08:18)
[2021-08-02] MEDS: LIDOCAINE 5% PATCH 2 PATCH TRANSDERM (08:19)
--- NOTE | 2021-08-02 10:15 | PM.PNORT ---
Progress Note: A&P Assessment and Plan (1) Syndesmotic disruption of left ankle: Qualifiers: Encounter type: subsequent encounter Qualified Code(s): S93.432D - Sprain of tibiofibular ligament of left ankle, subsequent encounter Code(s): S93.432A - Sprain of tibiofibular ligament of left ankle, initial encounter Status: Acute (2) Closed fracture of distal end of left tibia: Qualifiers: Encounter type: subsequent encounter Fracture alignment: nondisplaced Fracture healing: with routine healing Fracture morphology: pilon Qualified Code(s): S82.875D - Nondisplaced pilon fracture of left tibia, subsequent encounter for closed fracture with routine healing Code(s): S82.302A - Unspecified fracture of lower end of left tibia, initial encounter for closed fracture Status: Acute (3) Fracture of left fibula, shaft: Qualifiers: Encounter type: subsequent encounter Fracture type: closed Fracture morphology: spiral Fracture alignment: nondisplaced Fracture healing: with routine healing Qualified Code(s): S82.445D - Nondisplaced spiral fracture of shaft of left fibula, subsequent encounter for closed fracture with routine healing Code(s): S82.402A - Unspecified fracture of shaft of left fibula, initial encounter for closed fracture Status: Acute (4) Closed left ankle fracture: Qualifiers: Encounter type: initial encounter Qualified Code(s): S82.892A - Other fracture of left lower leg, initial encounter for closed fracture Code(s): S82.892A - Other fracture of left lower leg, initial encounter for closed fracture Status: Acute (5) Low back pain: Code(s): M54.50 - Low back pain, unspecified Status: Acute (6) Sciatica: Qualifiers: Laterality: left Qualified Code(s): M54.32 - Sciatica, left side Code(s): M54.30 - Sciatica, unspecified side Status: Acute Assessment and Plan: 61-year-old female who is status post ORIF left distal fibular shaft fracture along with open syndesmotic stabilization, day 8. Her therapy was started and she is now awaiting placement at longterm facility for discharge. I told her that she can follow-up with our office next week for staple removal. She will continue to be nonweightbearing of the left ankle for a total of 8 weeks. She will be taking 325 mg aspirin daily for DVT prophylaxis. No new issues or concerns during today's visit. In regards to the low back, I told her we could give her a referral to pain management if she does not have any relief with steroids and therapy. Subjective Subjective Date/Time Seen: 08/02/21 10:15 61-year-old female postop day 8 after ORIF left distal fibular shaft fracture along with open syndesmotic stabilization. She is progressing well and has no new complaints today. She states that her pain is under control with current regimen. She is having some low back and left-sided sciatica today. She states this was improved with the steroids but feels that the hospital bed may be causing her more of an issue. Review of Systems Review of Systems: All systems reviewed & are unremarkable except as noted in HPI and below Constitutional: Constitutional: Reports no additional constitutional complaints Eyes: Eyes: Reports no additional eye complaints ENT: Reports system reviewed and no additional complaints, except as documented Cardiovascular: Cardiovascular: Reports no additional cardiovascular complaints Respiratory: Respiratory: Reports no additional respiratory complaints Gastrointestinal: Gastrointestinal: Reports no additional gastrointestinal complaints Genitourinary: Genitourinary: Reports no additional female genitourinary complaints Musculoskeletal: Comments: She does report low back pain and sciatica that is continued. Integumentary/Breasts: Skin/Breast: Reports system reviewed and no additional complaints, except
--- NOTE | 2021-08-02 12:15 | PM.IMPN ---
Progress Note: A&P Assessment and Plan (1) Closed fracture of distal end of left tibia: Qualifiers: Encounter type: subsequent encounter Fracture alignment: nondisplaced Fracture healing: with routine healing Fracture morphology: pilon Qualified Code(s): S82.875D - Nondisplaced pilon fracture of left tibia, subsequent encounter for closed fracture with routine healing Code(s): S82.302A - Unspecified fracture of lower end of left tibia, initial encounter for closed fracture Status: Acute Assessment and Plan: Patient is POD 8 ORIF left distal fibula fracture with syndesmotic stabilization. Currently awaiting placement to SNF for acute rehabilitation. Insurance authorization is pending. Orthopedics will managed as an outpatient. (2) Low back pain: Code(s): M54.50 - Low back pain, unspecified Status: Acute Assessment and Plan: Improving. Continue lidocaine patch p.r.n.. Continue tapentadol on p.r.n. basis. PT OT will continue to follow. Continue Medrol Dosepak for 5 days. (3) BMI 37.0-37.9, adult: Code(s): Z68.37 - Body mass index [BMI] 37.0-37.9, adult Status: Acute Assessment and Plan: Diet and exercise. (4) Benign essential hypertension: Code(s): I10 - Essential (primary) hypertension Status: Acute Assessment and Plan: Blood pressure within acceptable range. Continue valsartan at current dose. (5) Hyperlipidemia: Qualifiers: Hyperlipidemia type: mixed hyperlipidemia Qualified Code(s): E78.2 - Mixed hyperlipidemia Code(s): E78.5 - Hyperlipidemia, unspecified Status: Acute Assessment and Plan: Continue statin. (6) Insomnia: Qualifiers: Insomnia type: unspecified Qualified Code(s): G47.00 - Insomnia, unspecified Code(s): G47.00 - Insomnia, unspecified Status: Acute Assessment and Plan: zolpidem p.r.n. at bedtime. Additional Plan She will be discharged to SNF once insurance authorization is received likely tomorrow on Sunday. Subjective Date/time seen: 08/02/21 10:15 S: Patient was examined at the bedside. Improvement of pain control. She is tolerating PT without issues. No active complaints. Review of Systems Review of Systems: All systems reviewed & are unremarkable except as noted in HPI and below Constitutional: Constitutional: Reports no additional constitutional complaints Eyes: Eyes: Reports no additional eye complaints ENT: Reports system reviewed and no additional complaints, except as documented Cardiovascular: Cardiovascular: Reports no additional cardiovascular complaints Respiratory: Respiratory: Reports no additional respiratory complaints Gastrointestinal: Gastrointestinal: Reports no additional gastrointestinal complaints Genitourinary: Genitourinary: Reports no additional female genitourinary complaints Musculoskeletal: Musculoskeletal: Reports no additional musculoskeletal complaints Integumentary/Breasts: Skin/Breast: Reports system reviewed and no additional complaints, except as docu Neurologic: Reports system reviewed and no additional complaints, except as documented Psychiatric: Psychiatric: Reports no additional psychiatric complaints Exam Narrative: General awake and alert not in acute distress CVS S1-S2 no murmur Respiratory no wheezes or crepitation respiration nonlabored GI soft nontender nondistended no hepatosplenomegaly 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
--- NOTE | 2021-08-02 13:23 | PM.DS ---
DS: Discharge Diagnosis Discharge Diagnosis (1) Closed fracture of distal end of left tibia: Qualifiers: Encounter type: subsequent encounter Fracture alignment: nondisplaced Fracture healing: with routine healing Fracture morphology: pilon Qualified Code(s): S82.875D - Nondisplaced pilon fracture of left tibia, subsequent encounter for closed fracture with routine healing Code(s): S82.302A - Unspecified fracture of lower end of left tibia, initial encounter for closed fracture Status: Acute Assessment and Plan: Patient is POD 8 ORIF left distal fibula fracture with syndesmotic stabilization. Currently awaiting placement to SNF for acute rehabilitation. Insurance authorization is pending. Orthopedics will managed as an outpatient. (2) Low back pain: Code(s): M54.50 - Low back pain, unspecified Status: Acute Assessment and Plan: Improving. Continue lidocaine patch p.r.n.. Continue tapentadol on p.r.n. basis. PT OT will continue to follow. Continue Medrol Dosepak for 5 days. (3) BMI 37.0-37.9, adult: Code(s): Z68.37 - Body mass index [BMI] 37.0-37.9, adult Status: Acute Assessment and Plan: Diet and exercise. (4) Benign essential hypertension: Code(s): I10 - Essential (primary) hypertension Status: Acute Assessment and Plan: Blood pressure within acceptable range. Continue valsartan at current dose. (5) Hyperlipidemia: Qualifiers: Hyperlipidemia type: mixed hyperlipidemia Qualified Code(s): E78.2 - Mixed hyperlipidemia Code(s): E78.5 - Hyperlipidemia, unspecified Status: Acute Assessment and Plan: Continue statin. (6) Insomnia: Qualifiers: Insomnia type: unspecified Qualified Code(s): G47.00 - Insomnia, unspecified Code(s): G47.00 - Insomnia, unspecified Status: Acute Assessment and Plan: zolpidem p.r.n. at bedtime. DS: Summary Hospital Course Reason for hospitalization: Chief Complaint: Left ankle pain. Hospital Course: 61-year-old female with a past medical history including but not limited to obesity, GERD, dyslipidemia, vitamin-D deficiency who is currently admitted with an acute left ankle fracture. patient was evaluated by the orthopedic system and will undergo a surgical repair tomorrow. CT scan Revealed a mildly displaced and angulated oblique fracture of the distal left fibula diaphysis and a comminuted intra-articular fracture of the distal tibia involving the posterior malleolus and posterior aspect of the medial malleolus with minimal to mild depression of a small portion of the posterior articular surface of the tibial plateau. Plan to keep her NPO after midnight tonight and proceed tomorrow. on admission to the ED the patient was stable afebrile with the following vital signs temperature 97.4?, pulse rate 96, respiratory rate 16, blood pressure 135/98, pulse oximetry 98%. On today's lab the CBC reveals a WBC of 7.1, hemoglobin 9.6, hematocrit 29.8 and a platelet count of 213. This represented a 3 point drop from her baseline hemoglobin in March and in May. Her chemistry shows a sodium of 139, potassium 3.9, chloride 106, bicarbonate 23, BUN 23, creatinine 0.9, blood glucose 104. LFTs are normal with a total bilirubin of 0.5, AST 28, ALT 18, alkaline phosphatase 66. Total protein 7.2 and albumin is 4. Lipid profile reveals a triglyceride of 92, cholesterol 137, LDL 52. TSH 2.7, free T4 1.0. Vitamin-D total 38. Will send a routine urinalysis. Patient will be admitted inpatient for at least 2 midnights. Status at Discharge Functional status at discharge: wheelchair bound Overall status at discharge: patient is progressing back to baseline Time Spent with Patient Time attestation: Total time spent providing and/or coordinating discharge services: Time spent: Greater than 30 minutes Exam Narrative: General awake and
[2021-08-02 15:05] VITALS: BP 105/62; PULSE 106; RESP 18; TEMP 36.1
[2021-08-02] MEDS: ROSUVASTATIN 10 MG TABLET PO (17:10)
[2021-08-02 21:42] VITALS: BP 125/68; PULSE 90; RESP 18; TEMP 36.7; O2SAT 95
[2021-08-02] MEDS: ZOLPIDEM TARTRATE (*CRX) 5 MG TABLET 10 MG PO (21:57)
[2021-08-03] MEDS: TAPENTADOL HCL (*CRX) 50 MG TABLET PO ×3 (04:24→16:29)
[2021-08-03 05:29] VITALS: BP 104/67; PULSE 98; RESP 18; TEMP 36.3; O2SAT 99
[2021-08-03] MEDS: ACETAMINOPHEN 500 MG TABLET 1000 MG PO ×2 (06:26→12:25)
[2021-08-03] MEDS: LIDOCAINE 5% PATCH 2 PATCH TRANSDERM (08:25)
[2021-08-03] MEDS: buPROPion HCL XL (24 HR) 150 MG TABCR PO (08:25)
[2021-08-03] MEDS: BACLOFEN 10 MG TABLET PO ×2 (08:26→12:25)
[2021-08-03] MEDS: VALSARTAN 160 MG TABLET PO (08:26)
[2021-08-03] MEDS: PANTOPRAZOLE 40 MG TABLET PO (08:26)
[2021-08-03] MEDS: ASPIRIN 325 MG ENTERIC TABLET PO (08:26)
[2021-08-03] MEDS: DOCUSATE SODIUM 100 MG CAPSULE PO (08:26)
[2021-08-03] MEDS: CITALOPRAM HYDROBROMIDE 20 MG TABLET PO (08:26)
[2021-08-03 14:37] VITALS: BP 104/64; PULSE 85; RESP 14; TEMP 36; O2SAT 94
--- NOTE | 2021-08-03 15:23 | PM.DS ---
DS: Admitting Diagnosis Discharge Date 08/03/2021 Admitting Diagnosis Left ankle pain. DS: Discharge Diagnosis Discharge Diagnosis (1) Closed fracture of distal end of left tibia: Qualifiers: Encounter type: subsequent encounter Fracture alignment: nondisplaced Fracture healing: with routine healing Fracture morphology: pilon Qualified Code(s): S82.875D - Nondisplaced pilon fracture of left tibia, subsequent encounter for closed fracture with routine healing Code(s): S82.302A - Unspecified fracture of lower end of left tibia, initial encounter for closed fracture Status: Acute Assessment and Plan: Patient is POD 9 ORIF left distal fibula fracture with syndesmotic stabilization. Pt discharged to home health services. Pt feels well today for discharge. Orthopedics will managed as an outpatient. Pt to follow discharge instructions from orthopedics. (2) Low back pain: Code(s): M54.50 - Low back pain, unspecified Status: Acute Assessment and Plan: Improving. Continue lidocaine patch p.r.n.. Continue tapentadol on p.r.n. basis. PT OT will continue to follow. Continue Medrol Dosepak. (3) BMI 37.0-37.9, adult: Code(s): Z68.37 - Body mass index [BMI] 37.0-37.9, adult Status: Acute Assessment and Plan: Diet and exercise. (4) Benign essential hypertension: Code(s): I10 - Essential (primary) hypertension Status: Acute Assessment and Plan: Blood pressure within acceptable range. Continue valsartan at current dose. (5) Hyperlipidemia: Qualifiers: Hyperlipidemia type: mixed hyperlipidemia Qualified Code(s): E78.2 - Mixed hyperlipidemia Code(s): E78.5 - Hyperlipidemia, unspecified Status: Acute Assessment and Plan: Continue statin. (6) Insomnia: Qualifiers: Insomnia type: unspecified Qualified Code(s): G47.00 - Insomnia, unspecified Code(s): G47.00 - Insomnia, unspecified Status: Acute Assessment and Plan: zolpidem p.r.n. at bedtime. DS: Summary Hospital Course Reason for hospitalization: Chief Complaint: Left ankle pain. Hospital Course: 61-year-old female with a past medical history including but not limited to obesity, GERD, dyslipidemia, vitamin-D deficiency who is currently admitted with an acute left ankle fracture. patient was evaluated by the orthopedic system and will undergo a surgical repair. CT scan revealed a mildly displaced and angulated oblique fracture of the distal left fibula diaphysis and a comminuted intra-articular fracture of the distal tibia involving the posterior malleolus and posterior aspect of the medial malleolus with minimal to mild depression of a small portion of the posterior articular surface of the tibial plateau. Pt is stable for discharge, post op day 9. 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 Carrillo: Do not remove the dressing from the left lower extremity. Keep the left lower extremity dressing clean and dry. O
== END 2021-08-03 16:30 | disposition home health service (06) | DRG 494 ==
LOC: ANHED 20:44 → ANH3MEDSUR 23:15
PROVIDERS: Orthopaedic Surgery; Admitting Provider Internal Medicine; Emergency Provider Emergency Medicine; PCP Internal Medicine; Visit Provider Internal Medicine
PROC: 0QSK04Z Reposition Left Fibula with Internal Fixation Device, Open Approach (ICD-10-PCS; principal; 2021-07-25 14:30)
DX: S82.445A Nondisplaced spiral fracture of shaft of left fibula, initial encounter for closed fracture (principal); S93.432A Sprain of tibiofibular ligament of left ankle, initial encounter; S82.875A Nondisplaced pilon fracture of left tibia, initial encounter for closed fracture; W19.XXXA Unspecified fall, initial encounter; G89.18 Other acute postprocedural pain; M54.42 Lumbago with sciatica, left side; K21.9 Gastro-esophageal reflux disease without esophagitis; E55.9 Vitamin D deficiency, unspecified; I10 Essential (primary) hypertension; G47.00 Insomnia, unspecified; E78.2 Mixed hyperlipidemia; E66.9 Obesity, unspecified; Z68.37 Body mass index [BMI] 37.0-37.9, adult; Z79.899 Other long term (current) drug therapy; Z87.891 Personal history of nicotine dependence
CPT/HCPCS: 29515; 36415; 72100; 73502; 73562; 73610; 73700; 80048; 80053; 85025; 85027; 85610; 85730; 96361; 96365; 96374; 96375; 96376; 97110; 97116; 97162; 97165; 97530; 97535; 99285; A9270; C1713; G0378; J0690; J2250; J2405; J2704; J3010; J7030; J7120

== ENCOUNTER 2021-11-21 00:32 | Day surgery (SDC) | payer OTHER, SELFPAY ==
[2021-11-14 10:23] VITALS: BMI 36.8
--- NOTE | 2021-11-20 11:45 | WPDANESEPP ---
Anes - Eval Pre Procedure Procedure: Operation Date: 11/21/21 11:30 Proposed Procedures p Screening Colonoscopy - Binu Goode MD Date/Time: 11/20/21 11:45 Surgeon: Rupa Pre Op Diagnosis: family hx of colon polyps Patient Data Age: 61 Gender: F Height: 1.63 m Weight: 97.5 kg Allergies Allergy/AdvReac Type Severity Reaction Status Date / Time Cephalosporins Allergy Mild HIVES Verified 11/16/21 10:20 cefdinir Allergy Unknown Hives Verified 11/16/21 10:20 ciprofloxacin Allergy Unknown Rash Verified 11/16/21 10:20 codeine Allergy Unknown Hives Verified 11/16/21 10:20 doxycycline Allergy Unknown Hives Verified 11/16/21 10:20 duloxetine Allergy Unknown Hives, Verified 11/16/21 10:20 Throat Swelling gabapentin Allergy Unknown Hives Verified 11/16/21 10:20 morphine Allergy Unknown Hives Verified 11/16/21 10:20 nortriptyline Allergy Unknown Hives Verified 11/16/21 10:20 Penicillins Allergy Unknown Hives Verified 11/16/21 10:20 tramadol Allergy Unknown Rash Verified 11/16/21 10:20 Home Medications Medication Instructions Recorded Confirmed Type baclofen 10 mg tablet See Rx Instructions .ROUTE 07/18/21 11/17/21 Rx .COMPLEX #270 tablet albuterol sulfate 1 inh INHALATION PRN PRN 07/24/21 11/17/21 History bupropion HCl 150 mg PO DAILY 07/24/21 11/17/21 History citalopram 20 mg PO DAILY 07/24/21 11/17/21 History omeprazole 40 mg PO DAILY 07/24/21 11/17/21 History rosuvastatin 10 mg PO QPM 07/24/21 11/17/21 History zolpidem 12.5 mg tablet,extended 12.5 mg PO QPM #90 tablet 10/13/21 11/17/21 Rx release,multiphase acetaminophen 1,000 mg PO BID 11/14/21 11/17/21 History lidocaine [Lidoderm] 1 patch TRANSDERMAL DAILY PRN 11/14/21 11/17/21 History valsartan 80 mg tablet 80 mg PO DAILY #90 tablet 11/16/21 11/17/21 Rx EC03/2021 SR IRBBB rate 87 Patient hx anesthesia problems: none Family hx anesthesia problems: none Prior surgeries: 07/2021 ORIF right ankle, uterine ablation, rectocele repair Results Review: All pre-operative results and documents have been reviewed as part of the pre-operative evaluation. [facility] Past Medical History Medical History Abnormal finding of blood chemistry Back pain Benign essential hypertension BMI 36.0-36.9,adult Chronic cough Chronic sinus complaints Closed left ankle fracture Colon cancer screening Cough Depression Dizziness Encounter for colorectal cancer screening Encounter for preventive health examination Encounter for routine adult health examination with abnormal findings Encounter for routine adult health examination without abnormal findings Encounter for screening mammogram for malignant neoplasm of breast Encounter for well woman exam with routine gynecological exam Exposure to hepatitis C Follow up GERD (gastroesophageal reflux disease) History of colitis Hospital discharge follow-up Hyperlipidemia Insomnia Lesion of face 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 Personal history of COVID-19 Sciatica URI (upper respiratory infection) Vitamin D deficiency Surgical History Surgical History Closed fracture of distal end of left tibia ORIF July 25, 2021 Fracture of left fibula, shaft ORIF July 25, 2021 H/O rectocele repair Syndesmotic disruption of left ankle Syndesmotic stabilization July 25, 2021 Family History Family History Father Hypertension Family history of diabetes mellitus in first degree relative Diabetes mellitus Sibling Hypertension Mother Family history of diabetes mellitus in first degree relative Diabetes mellitus Hypertension Grandparent Family history of lung cancer Other Colon polyp Family history of arthritis Family history of malignant neoplasm of bone Social History Social History
[2021-11-21 10:39] VITALS: BP 106/77; PULSE 102; RESP 20; TEMP 36.1; O2SAT 98; BMI 35.5
[2021-11-21] MEDS: LACTATED RINGERS 1,000 ML 150 ML IV CONT (10:50)
--- NOTE | 2021-11-21 10:54 | WPDGICN ---
Assessment and Plan Assessment and plan (1) Encounter for colorectal cancer screening: Code(s): Z12.11 - Encounter for screening for malignant neoplasm of colon; Z12.12 - Encounter for screening for malignant neoplasm of rectum Status: Acute Assessment and Plan: Patient has a family history of colon polyps in her sister. She may have had a diminutive colon polyp removed from her colon more than 10 years ago. She presents today for screening colonoscopy. GI Consult Note Consult date/time: 11/21/21 10:54 HPI: Rosalinda Ambrose is a 61 year old female Presents for screening colonoscopy. Patient's current weight appetite and bowel movements are normal. She denies abdominal pain. She has had no bleeding. She reports she had a diminutive colon polyp removed in colon 10 years ago. Her sister has had colon polyps. Patient presents today for surveillance examination. Her last colonoscopy was 7 years ago Review of Systems Review of Systems: All systems reviewed & are unremarkable except as noted in HPI and below PMFSH Past Medical History Medical History Abnormal finding of blood chemistry Back pain Benign essential hypertension BMI 36.0-36.9,adult Chronic cough Chronic sinus complaints Closed left ankle fracture Colon cancer screening Cough Depression Dizziness Encounter for colorectal cancer screening Encounter for preventive health examination Encounter for routine adult health examination with abnormal findings Encounter for routine adult health examination without abnormal findings Encounter for screening mammogram for malignant neoplasm of breast Encounter for well woman exam with routine gynecological exam Exposure to hepatitis C Follow up GERD (gastroesophageal reflux disease) History of colitis Hospital discharge follow-up Hyperlipidemia Insomnia Lesion of face On assisted drug therapy Personal history of COVID-19 Sciatica URI (upper respiratory infection) Vitamin D deficiency Surgical History Surgical History Closed fracture of distal end of left tibia ORIF July 25, 2021 Fracture of left fibula, shaft ORIF July 25, 2021 H/O rectocele repair Syndesmotic disruption of left ankle Syndesmotic stabilization July 25, 2021 Family History Family History Father Hypertension Family history of diabetes mellitus in first degree relative Diabetes mellitus Sibling Hypertension Mother Family history of diabetes mellitus in first degree relative Diabetes mellitus Hypertension Grandparent Family history of lung cancer Other Colon polyp Family history of arthritis Family history of malignant neoplasm of bone Social History Social History Smoking packs per day: 1 Smoking cigarettes per day: 20.0 Years smoked: 30 Smoking pack-years: 30.00 Smoking status: Former smoker Tobacco type: cigarettes Second hand tobacco smoke exposure: No Smoking end date: 09/17/03 Alcohol intake: never Substance use: never Substance use type: does not use Living arrangements: with family Spiritual care concerns: No Meds Home Medications and Allergies Home Medications Medication Instructions Recorded Confirmed Type baclofen 10 mg tablet See Rx Instructions .ROUTE 07/18/21 11/17/21 Rx .COMPLEX #270 tablet albuterol sulfate 1 inh INHALATION PRN PRN 07/24/21 11/17/21 History bupropion HCl 150 mg PO DAILY 07/24/21 11/17/21 History citalopram 20 mg PO DAILY 07/24/21 11/17/21 History omeprazole 40 mg PO DAILY 07/24/21 11/17/21 History rosuvastatin 10 mg PO QPM 07/24/21 11/17/21 History zolpidem 12.5 mg tablet,extended 12.5 mg PO QPM #90 tablet 10/13/21 11/17/21 Rx release,multiphase acetaminophen 1,000 mg PO BID 11/14/21
--- NOTE | 2021-11-21 10:58 | WPDANESEFPP ---
Anes - Eval Final PreProcedure Day of Procedure 11/21/21 10:58 Patient weight: obese Heart: regular rate and rhythm Lungs: clear to auscultation and normal air movement Airway: Mallampati scale class II Neurological: alert and oriented Last oral intake: >/= 8 hours ASA classification: III Emergent: no Anesthetic plan: proceed Anesthesia type and monitoring: general GIVS and standard monitoring Results Review: All pre-operative results and documents have been reviewed as part of the pre-operative evaluation. Informed Consent: The patient's anesthetic plan and its attendant risks and benefits were discussed with the patient/family/POA. Questions were solicited and answers provided to the satisfaction of the patient/family/POA.
[2021-11-21 11:25] VITALS: BP 102/72; PULSE 76; RESP 19; O2SAT 96
[2021-11-21 11:35] VITALS: BP 114/79; PULSE 82; RESP 23; O2SAT 95
[2021-11-21 11:45] VITALS: BP 122/91; PULSE 85; RESP 21; O2SAT 95
== END 2021-11-21 11:54 | disposition home or self-care (01) ==
PROVIDERS: PCP Internal Medicine; Visit Provider Internal Medicine Gastroenterology
PROC: 0DJD8ZZ Inspection of Lower Intestinal Tract, Via Natural or Artificial Opening Endoscopic (ICD-10-PCS; CPT 45378; principal; 2021-11-21 11:30)
DX: Z12.11 Encounter for screening for malignant neoplasm of colon (principal); D12.2 Benign neoplasm of ascending colon; Z83.71 Family history of colonic polyps; K64.8 Other hemorrhoids; E66.9 Obesity, unspecified; Z68.35 Body mass index [BMI] 35.0-35.9, adult; K21.9 Gastro-esophageal reflux disease without esophagitis; E55.9 Vitamin D deficiency, unspecified; M54.30 Sciatica, unspecified side; Z86.16 Personal history of COVID-19; E78.5 Hyperlipidemia, unspecified; F32.9 Major depressive disorder, single episode, unspecified; I10 Essential (primary) hypertension; Z87.891 Personal history of nicotine dependence; Z79.51 Long term (current) use of inhaled steroids
CPT/HCPCS: 45385; 88305; J2704; J7120

== ENCOUNTER 2021-12-02 14:28 | Outpatient (CLI) | payer OTHER, SELFPAY ==
--- NOTE | ~2021-12-02 | MM_ITS ---
EXAMINATION: MM screening [facility] HISTORY: Screening mammogram TECHNIQUE: Craniocaudal and mediolateral oblique 3-D tomosynthesis images were obtained and synthetic 2-D images were generated. CAD analysis was submitted and interpreted. COMPARISON: 09/22/2020, 05/10/2018, 06/21/2017 BREAST PARENCHYMAL COMPOSITION: There are scattered areas of fibroglandular density. FINDINGS: There is no suspicious mass, calcification, or architectural distortion to suggest malignan cy in either breast. There has been no suspicious interval change. IMPRESSION: 1. No mammographic evidence of malignancy. 2. Recommend routine screening mammography in one year. BI-RADS Category 1: Negative Reviewed, dictated and finalized at location A.
== END 2021-12-02 14:29 | disposition home or self-care (01) ==
LOC: ANHIMG 14:30
PROVIDERS: PCP Internal Medicine; Visit Provider Internal Medicine
DX: Z12.31 Encounter for screening mammogram for malignant neoplasm of breast (principal)
CPT/HCPCS: 77063; 77067

== ENCOUNTER 2022-05-31 15:56 | Outpatient (CLI) | payer OTHER, SELFPAY ==
--- NOTE | ~2022-05-31 | XR_ITS ---
EXAMINATION: XR chest 2V Exam Date/Time: 05/31/2022 16:05 CDT HISTORY: J06.9 - Acute upper respiratory infection, unspecified Comparison: 04/12/2021. RESULT: Lines, tubes, and devices: None. Lungs and pleura: Clear. Cardiomediastinal silhouette: Stable. Other: No acute osseous or upper abdominal finding. IMPRESSION: No acute cardiopulmonary process. Reviewed, dictated and finalized at location K.
== END 2022-05-31 15:57 | disposition home or self-care (01) ==
PROVIDERS: PCP Internal Medicine; Visit Provider Internal Medicine
DX: J06.9 Acute upper respiratory infection, unspecified (principal); R05.9 Cough, unspecified; R09.89 Other specified symptoms and signs involving the circulatory and respiratory systems
CPT/HCPCS: 71046

== ENCOUNTER 2023-03-05 08:38 | Outpatient (CLI) | payer OTHER, SELFPAY ==
--- NOTE | ~2023-03-05 | MM_ITS ---
EXAMINATION: MM screening marco BI w coni HISTORY: Screening mammogram TECHNIQUE: Craniocaudal and mediolateral oblique 3-D tomosynthesis images were obtained and synthetic 2-D images were generated. CAD analysis was submitted and interpreted. COMPARISON: 12/02/2021, 09/22/2020 bilateral screening mammogram examinations BREAST PARENCHYMAL COMPOSITION: There are scattered areas of fibroglandular density. FINDINGS: There are 2 biopsy markers on the right; history of prior benign right breast biopsies. The re is no evidence of suspicious mass, calcification, or architectural distortion to suggest malignanc y in either breast. There has been no suspicious interval change. IMPRESSION: 1. No mammographic evidence of malignancy. 2. Recommend routine screening mammography in one year. BI-RADS Category 1: Negative Reviewed, dictated and finalized at location A.
== END 2023-03-05 08:39 | disposition home or self-care (01) ==
LOC: ANHIMG 08:39
PROVIDERS: PCP Internal Medicine; Visit Provider Internal Medicine
DX: Z12.31 Encounter for screening mammogram for malignant neoplasm of breast (principal)
CPT/HCPCS: 77063; 77067

== ENCOUNTER 2023-10-29 14:19 | Outpatient (CLI) | payer OTHER, SELFPAY ==
--- NOTE | ~2023-10-29 | XR_ITS ---
XR chest 2V DATE: 10/29/2023 14:29 INDICATION: Cough. Recent bronchitis. TECHNIQUE: PA and lateral views COMPARISON: 05/31/2022 PA and lateral chest FINDINGS: Normal heart size. No hilar or mediastinal enlargement. No pulmonary infiltrate or consolid ation, pleural effusion or pulmonary vascular congestion or pneumothorax is detected. IMPRESSION: No active cardiopulmonary disease Reviewed, dictated and finalized at location B. [employer]
== END 2023-10-29 14:20 | disposition home or self-care (01) ==
PROVIDERS: PCP Internal Medicine; Visit Provider Internal Medicine
DX: R05.9 Cough, unspecified (principal)
CPT/HCPCS: 71046

== ENCOUNTER 2024-03-12 10:52 | Outpatient (CLI) | payer OTHER, SELFPAY ==
--- NOTE | ~2024-03-12 | DEXA_ITS ---
Bone Density Report Name: ANTWAN TREADWELL Age: 63 Sex: Female Ethnicity: White Date of : 1960 Indication: postmenopausal; screening for osteoporosis; parental hip fracture; height loss; asthma or emphysema; Referring Provider: CAESAR REYEZ Study: Bone densitometry was performed. Exam Date: March 12, 2024 Accession number: [id number] Bone Density: Region BMD T-score Z-score Classification AP Spine(L1-L4) 1.176 1.2 2.8 Normal Femoral Neck (Left) 0.842 -0.1 1.4 Normal Total Hip (Left) 0.995 0.4 1.6 Normal Femoral Neck (Right) 0.932 0.7 2.2 Normal Total Hip (Right) 0.952 0.1 1.2 Normal Total Hip Mean 0.973 0.3 1.4 Normal World Health Organization criteria for BMD impression classify patients as: Normal (T-score at or above -1.0), Osteopenia (T-score between -1.0 and -2.5), or Osteoporosis (T-score at or below -2.5). 10-year Fracture Risk: FRAX not reported because: All T-scores for Spine Total, Hip Total, Femoral Neck at or above -1.0 Clinical Information Provided by Patient: Parent has had a hip fracture Has used the following medications: Vitamin D, Calcium Has the following medical conditions: Asthma or Emphysema Patient maximum height was 65 Menopause Age: 47 No regular weight bearing exercise Drinks caffeinated beverages Onset of menses at age 10 Number of children 2 Impression: The patient has normal bone mass. The patient has risk factors, including: parental hip fracture. Discussion: BONE DENSITY IS ABOVE THE MINIMUM DESIRABLE LEVEL AT ALL SKELETAL SITES TESTED. This patient?s bone mineral density is above the minimum desirable level (T-score -1.0 or better) at all sites measured. The patient should follow a healthful lifestyle (good nutrition with adequate calcium and vitamin D, and appropriate weight-bearing exercise). Follow-Up: Consider repeating this study in 5 years or sooner if there is some new clinical indication. Reported by: JULIO CÉSAR on 03/12/2024 11:20:00 AM. Reviewed, dictated and finalized at location AVickie [facility]
== END 2024-03-12 10:53 | disposition home or self-care (01) ==
LOC: ANHIMG 10:53
PROVIDERS: PCP Internal Medicine; Visit Provider Obstetrics & Gynecology Gynecology
DX: Z78.0 Asymptomatic menopausal state (principal)
CPT/HCPCS: 77080

== ENCOUNTER 2024-03-13 14:36 | Outpatient (CLI) | payer OTHER, SELFPAY ==
--- NOTE | ~2024-03-13 | XR_ITS ---
EXAM: XR ankle LT 2V DATE: 03/13/2024 14:52 HISTORY: HX SURG LT ANKLE LOOKING FOR LOOSE HARDWARE? . COMPARISON: 11/16/2021, 10/172109/20/2021, 08/09/2021; CT ankle 07/24/2021. FINDINGS: Screw and plate fixation of the distal left fibula. Syndesmotic fixation. No hardware fract ure. No perihardware lucency. Normal mineralization. Transverse lucency seen in a medial bone in the frontal view, probably projecting over the navicular, not well seen in prior examinations. No lytic o r blastic lesion. Mild degenerative change at the ankle joint.. No erosion or periosteal change. Soft tissues within normal limits. IMPRESSION: Transverse lucency, likely projecting over the navicular in the frontal view, may represent artifact or new fracture. Consider CT of the ankle for further evaluation, particularly if there is been a rec ent history of trauma or unexplained pain. No radiographic evidence of hardware-related complication in the tibia/fibula. Reviewed, dictated and finalized at location K. IMPRESSION: Transverse lucency, likely projecting over the navicular in the frontal view, m ay represent artifact or new fracture. Consider CT of the ankle for further leighton luation, particularly if there is been a recent history of trauma or unexplaine d pain. No radiographic evidence of hardware-related complication in the tibia/fibula.
== END 2024-03-13 14:37 | disposition home or self-care (01) ==
LOC: ANHIMG 14:37
PROVIDERS: PCP Internal Medicine; Visit Provider Internal Medicine
DX: S82.892A Other fracture of left lower leg, initial encounter for closed fracture (principal); X58.XXXA Exposure to other specified factors, initial encounter
CPT/HCPCS: 73600

== ENCOUNTER 2025-02-04 09:37 | Outpatient (CLI) | payer OTHER, SELFPAY ==
--- NOTE | ~2025-02-04 | MR_ITS ---
MRI of the brain Clinical History: Other disorder of vestibular function Technique: Axial and sagittal T1-weighted images were acquired. These were followed by axial T2-weigh roberta, diffusion weighted, gradient, and FLAIR images. Thin cut coronal and axial T1-weighted and T2-we ighted images were performed through the internal auditory canals. Following intravenous administrati on of 18 cc ProHance gadolinium, T1-weighted fat-sat imaging was performed through the brain in the a xial and coronal planes. Thin cut T1-weighted postcontrast imaging was performed through the internal auditory canals in the axial and coronal planes. Findings: No acute infarct, intracranial hemorrhage, or mass lesion seen. There are mild chronic micr ovascular ischemic changes in the periventricular white matter bilaterally. Ventricles and subarachnoid spaces are unremarkable. Orbits are unremarkable. Paranasal sinuses and m astoid air cells are clear. Major intracranial flow voids are intact. Sagittal midline structures are intact. No abnormal mass lesion seen at the internal auditory canals or cerebellopontine angle regions. No abnormal postcontrast enhancement identified. IMPRESSION: Mild chronic microvascular ischemic changes, otherwise unremarkable exam. Reviewed, dictated and finalized at location .
--- NOTE | ~2025-02-04 | MR_ITS ---
MRI of the cervical spine Clinical History: Dizziness and giddiness Technique: Axial T2-weighted and gradient images, and sagittal T1-weighted, T2-weighted, and STIR pasha ges were acquired. Findings: There is no fracture or sublocation of the cervical spine. Vertebral bodies maintain normal height and alignment. No bone marrow signal abnormality seen. At C2-C3, there is minimal left foraminal disc osteophyte complex but no definite neural foraminal na rrowing on either side. There is mild right facet arthropathy. No canal stenosis or cord compression. At C3-C4, there is mild bilateral facet arthropathy. No definite neural foraminal narrowing. No canal stenosis or cord compression. At C4-C5, there is disc osteophyte complex and bilateral facet arthropathy. There is bilateral severe neural foraminal narrowing. There is mild canal stenosis without marva cord compression. At C5-C6, there is moderate degenerative distended. There is disc osteophyte complex and bilateral fa cet arthropathy. There is bilateral neural foraminal narrowing. There is minimal canal stenosis witho ut marva cord compression. At C6-C7, there is advanced degenerative disc narrowing. There is minimal disc osteophyte complex wit h minimal facet arthropathy. There is severe bilateral neural foraminal narrowing. There is canal jose nosis without marva cord compression. No abnormal signal seen in the spinal cord. Paravertebral soft tissues are unremarkable. Impression: Moderate degenerative spondylosis, especially from C4 through C7, as detailed above. Reviewed, dictated and finalized at [facility]. Impression: Moderate degenerative spondylosis, especially from C4 through C7, as detailed camron henderson.
== END 2025-02-04 09:38 | disposition home or self-care (01) ==
PROVIDERS: PCP Internal Medicine; Visit Provider Internal Medicine
DX: M47.892 Other spondylosis, cervical region (principal); I67.82 Cerebral ischemia; H81.8X9 Other disorders of vestibular function, unspecified ear
CPT/HCPCS: 70553; 72141; A9579

== ENCOUNTER 2025-02-06 10:12 | Outpatient (CLI) | payer OTHER, SELFPAY ==
--- NOTE | ~2025-02-06 | MM_ITS ---
EXAMINATION: MM screening marco BI w coni HISTORY: Screening TECHNIQUE: Craniocaudal and mediolateral oblique 3-D tomosynthesis images were obtained and synthetic 2-D images were generated. CAD analysis was submitted and interpreted. COMPARISON: Comparison to multiple prior studies sequentially, with oldest reviewed study dated 06/18. BREAST PARENCHYMAL COMPOSITION: Not dense: There are scattered areas of fibroglandular density. FINDINGS: There is no evidence of suspicious mass, calcification, or architectural distortion to sugg est malignancy in either breast. There has been no suspicious interval change. IMPRESSION: 1. No mammographic evidence of malignancy. 2. Recommend routine screening mammography in one year. BI-RADS Category 1: Negative Reviewed, dictated and finalized at location B.
== END 2025-02-06 10:13 | disposition home or self-care (01) ==
LOC: ANHIMG 10:15
PROVIDERS: PCP Internal Medicine; Visit Provider Obstetrics & Gynecology Gynecology
DX: Z12.31 Encounter for screening mammogram for malignant neoplasm of breast (principal)
CPT/HCPCS: 77063; 77067